=== PATIENT | male | born 1940 | race Caucasian/White ===

== ENCOUNTER 2020-02-28 11:40 | Inpatient (IN) | payer MEDICARE, OTHER ==
[~2020-02-28] VITALS: Ht 175.3 cm; Wt 94.4 kg
--- NOTE | 2020-02-28 11:46 | Emergency Department Note ---
History of Present Illnes History of Present Illness History of Present Illness This is a 79 year old male arrives to the ED with complaints of dizziness weakness generalized malaise first past several months. Patient states he struggling to ambulate. Family is concerned because he is having a more difficult time doing day-to-day tasks. Patient resides with .. Chief Complaint Comment Patient in from home via EMS with reports of dizziness and weakness off and on for the last few months. Patient reports that he had an appointment to see his PCP about this but he was having trouble getting out to his car so his family told him to call for an ambulance. Patient denies any acute complaints at this time but does state that it has been getting harder and harder for him to get around. Patient does report frequent urination but denies pain with urination. Patient is slightly tachycardic at 95 in triage. Onset (how long ago): week(s) Severity: mild Duration (how long): week(s) Timing of current episode: constant Progression: worsening Chronicity: new Context: Reports trauma/injury; Denies recent illness, Denies recent surgery Relieving factors: none Exacerbating factors: none Associated symptoms: Reports syncope, Reports weakness Past Medical/Family History Physician Review I have reviewed the patient's past medical and family history. Any updates have been documented here. Social History Smoking Cessation: Never Smoker Review of Systems Review of Systems Constitutional: Reports as per HPI, Reports weakness EENTM: Reports no symptoms Cardiovascular: Reports no symptoms Respiratory: Reports no symptoms Gastrointestinal: Reports no symptoms Genitourinary: Reports no symptoms Musculoskeletal: Reports no symptoms Integumentary: Reports no symptoms Neurological: Reports no symptoms, Reports as per HPI, Reports tremors, Reports weakness Psychological: Reports no symptoms Endocrine: Reports no symptoms Hematological/Lymphatic: Reports no symptoms Physical Exam Related Data Allergies: Coded Allergies: No Known Allergies (Unverified , 02/28/20) Vital signs reviewed: Yes Physical Exam CONSTITUTIONAL Constitutional: Present well-nourished HENT HENT: Present normocephalic, Present atraumatic, Present oropharynx clear/moist, Present nose normal HENT L/R: Present left ext ear normal, Present right ext ear normal EYES Eyes: Reports PERRL, Reports conjunctivae normal NECK Neck: Present ROM normal PULMONARY Pulmonary: Present effort normal, Present breath sounds normal CARDIOVASCULAR Cardiovascular: Present regular rhythm, Present heart sounds normal, Present capillary refill normal, Present normal rate GASTROINTESTINAL Abdominal: Present soft, Present nontender, Present bowel sounds normal GENITOURINARY Genitourinary: Present exam deferred SKIN Skin: Present warm, Present dry MUSCULOSKELETAL Musculoskeletal: Present ROM normal NEUROLOGICAL Neurological: Present alert, Present abnormal coordination, Present abnormal gait, Present weakness PSYCHOLOGICAL Psychological: Present mood/affect normal, Present judgement normal Results Laboratory Lab results reviewed: Yes Laboratory comments Laboratory Tests Test 02/28/20 15:43 02/28/20 15:05 02/28/20 12:50 White Blood Count 44.69 x10e3/uL (4.8-10.8) 39.78 x10e3/uL (4.8-10.8) Red Blood Count 4.65 x10e6/uL (4.3-5.7) 4.55 x10e6/uL (4.3-5.7) Hemoglobin 14.8 g/dL (14.0-18.0) 14.4 g/dL (14.0-18.0) Hematocrit 44.5 % (38.2-49.6) 43.0 % (38.2-49.6) Mean Corpuscular Volume 95.7 fL (81-99) 94.5 fL (81-99) Mean Corpuscular Hemoglobin 31.8 pg (28-32) 31.6 pg (28-32) Mean Corpuscular Hemoglobin Concent 33.3 g/dL (31-35) 33.5 g/dL (31-35) Red Cell Distribution Width 14.0 % (11.7-14.4) 13.9 % (11.7-14.4) Platelet Count 171 x10e3/uL (140-360) 164 x10e3/uL (140-360) Neutrophils (%) (Auto) 84.5 % (38.7-80.0) 85.6 % (38.7-80.0) Lymphocytes (%) (Auto) 3.3 % (18.0-39.1) 2.4 % (18.0-39.1) Monocytes (%) (Auto) 8.9 % (4.4-11.3) 8.8 % (4.4-11.3) Eosinophils (%) (Auto) 0.0 % (0.0-6.0) 0.1 % (0.0-6.0) Basophils (%) (Auto) 0.5 % (0.0-1.0) 0.4 % (0.0-1.0) Neutrophils # (Auto) 37.8 (2.1-6.9) 34.0 (2.1-6.9) Lymphocytes # (Auto) 1.5 (1.0-3.2) 1.0 (1.0-3.2) Monocytes # (Auto) 4.0 (0.2-0.8) 3.5 (0.2-0.8) Eosinophils # (Auto) 0.0 (0.0-0.4) 0.0 (0.0-0.4) Basophils # (Auto) 0.2 (0.0-0.1) 0.2 (0.0-0.1) Absolute Immature Granulocyte (auto 1.25 x10e3/uL (0-0.1) 1.09 x10e3/uL (0-0.1) Differential Total Cells Counted 100 Neutrophils % (Manual) 89 % (40-74) Lymphocytes % (Manual) 2 % (19-48) Monocytes % (Manual) 9 % (3.4-9.0) Platelet Estimate Adequate Platelet Morphology Comment Few large Polychromasia Few Hypochromasia Slight Stomatocytes Moderate Red Cell Morphology Comment Abnormal Sodium Level 138 mmol/L (136-145) Potassium Level 4.4 mmol/L (3.5-5.1) Chloride Level 103 mmol/L (98-107) Carbon Dioxide Level 22 mmol/L (22-29) Anion Gap 17.4 mmol/L (8-16) Blood Urea Nitrogen 23 mg/dL (7-26) Creatinine 1.36 mg/dL (0.72-1.25) Estimat Glomerular Filtration Rate 50 ML/MIN (60-) BUN/Creatinine Ratio 17 (6-25) Glucose Level 136 mg/dL (74-118) Hemoglobin A1c Percent 6.2 % (4.0-7.0) Calcium Level 9.6 mg/dL (8.4-10.2) Total Bilirubin 0.6 mg/dL (0.2-1.2) Aspartate Amino Transf (AST/SGOT) 32 IU/L (5-34) Alanine Aminotransferase (ALT/SGPT) 20 IU/L (0-55) Alkaline Phosphatase 84 IU/L (40-150) Creatine Kinase 894 IU/L (30-200) Creatine Kinase MB 8.50 ng/mL (0-5.0) Troponin I 0.032 ng/mL (0-0.300) B-Type Natriuretic Peptide 27.8 pg/mL (0-100) Total Protein 7.5 g/dL (6.5-8.1) Albumin 4.0 g/dL (3.5-5.0) Globulin 3.5 g/dL (2.3-3.5) Albumin/Globulin Ratio 1.1 (0.8-2.0) Thyroid Stimulating Hormone (TSH) 1.006 uIU/mL (0.350-4.940) Imaging Imaging results reviewed: Yes Impressions IMPRESSION: 1. Mild to moderate supratentorial ventriculomegaly is slightly out of proportion to sulcal prominence. Correlate for communicating hydrocephalus (i.e. normal pressure hydrocephalus in the appropriate clinical setting). 2. Otherwise, no acute intracranial abnormalities. 3. Mild to moderate supratentorial chronic microvascular ischemic change. 4. Focal areas of encephalomalacia in the left posterior temporal lobe and left temporal pole may be related to remote trauma and/or infarcts. 5. Mild generalized cerebral volume loss. Procedures 12 Lead ECG Interpretation ECG Interpretation : ECG: ECG 1 Prior ECG tracings: reviewed Rhythm: sinus rhythm Rate: tachycardia QRS axis: left Conduction: LAFB ST segments normal: Yes T waves normal: Yes Clinical Impression: abnormal ECG Assessment & Plan Medical Decision Making MDM 79-year-old male arrives to the ED with frequent falls and unsteady gait. Patient had a fall while in the waiting room, denied any head injury. CT brain done on arrival to ensure no acute CVA with her ischemic or hemorrhagic. CT findings were concerning for normal pressure hydrocephalus. Patient admitted to the general medical floor for further workup and management. Neurology consulted. Assessment & Plan Final Impression: (1) Normal pressure hydrocephalus (2) Weakness (3) Ataxia Depart Disposition: ADMITTED ABHISHEK ALMEIDA DO Feb 28, 2020 11:51
--- OUTSIDE RECORDS SUMMARY | 2020-02-28 11:58 | XMS REPORT | Clinical Summary ---
Author Author Jose Martin [employer] Organization [place] [facility] Address Unknown Phone Unavailable Care Team Providers Care Whizzer Hand Name Role Phone Nimesh Montalvo MD PCP [phone] Allergies Not on File Medications Not on file Active Problems Not on file Encounters Care Team Description Date Type Specialty Andres Wong MD Spinal stenosis, lumbar region, without neurogenic claudication (Primary Dx) 04/30/2019 Transcribe Physical Therapy Orders after 02/27/2019 Social History Date Tobacco Use Types Packs/Day Years Used Never Assessed Sex Assigned at Date Recorded Not on file Last Filed Vital Signs Not on file Plan of Treatment Health Maintenance Due Date Last Done Comments SHINGLES VACCINES (#1) 1988 65+ PNEUMOCOCCAL VACCINE 2003 02/07/2016 (2 of 2 - PPSV23) INFLUENZA VACCINE 11/20/2019 01/01/2018, 01/01/2018, 01/01/2018, Additional history exists Results Not on fileafter 02/27/2019 Insurance Type Payer Benefit Subscriber ID Effective Phone Address Plan / Dates Group Medicare MEDICARE MEDICARE [id number] 2003-P JOSE MARTIN, PART A AND resent [place] B Commercial UNITED ROMANIAN 1spire [id number] 2018-P ROMANIAN resent Advance Directives For more information, please contact: [phone] 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
--- OUTSIDE RECORDS SUMMARY | 2020-02-28 11:58 | XMS REPORT | Clinical Summary ---
Author Author KENDRA [place] [employer] Organization [facility] [employer] [place] [facility] Address Unknown Phone Unavailable Care Team Providers Care Tank Carpenter Name Role Phone Sharpless PCP Allergies Not on File Medications Not on file Active Problems Not on file Social History Date Tobacco Use Types Packs/Day Years Used Never Assessed Sex Assigned at Date Recorded Not on file Last Filed Vital Signs Not on file Plan of Treatment Not on file Results Not on fileafter 02/27/2019 Insurance Type Payer Benefit Subscriber ID Effective Phone Address Plan / Dates Group Medicare MEDICARE MEDICARE A [id number] 2003-P B resent PPO BLUE CROSS/BLUE SHIELD BCBS PPO [id number] 2015-P [phone] [address] EPO resent [id number] [place] [address]
--- NOTE | 2020-02-28 12:53 | Diagnostic Imaging Report ---
CT BRAIN WO HISTORY: Weakness and fall COMPARISON: None. Technique: Noncontrast axial scans were obtained from skull base to the vertex. Coronal and sagittal reconstructions obtained from the axial data. One or more of the following dose reduction techniques were used: Automated exposure control, adjustment of the mA and/or kV according to patient size, and/or utilization of iterative reconstruction technique. Beam hardening artifacts obscure some details, especially in the posterior fossa. DISCUSSION: Scalp/Skull: Unremarkable. Brain sulci: Mildly prominent. Ventricles: Mild to moderate supratentorial ventriculomegaly is slightly out of proportion to sulcal prominence. The temporal horns are dilated. The fourth ventricle is unremarkable. Extra-axial spaces: No masses or fluid collections. Carotid and vertebral artery calcifications are present. Parenchyma: There is focal encephalomalacia in the left posterior temporal lobe. Subtle focal encephalomalacia in the left temporal pole is also present. Mild to moderate bilateral deep white matter hypodensity is likely chronic microvascular ischemic change. Otherwise, no masses, hemorrhage, or large vascular territory acute infarct. Dural sinuses: No abnormal densities. Sellar/Suprasellar region: Intact. Skull base: Intact. Incidental findings: Bilateral ocular lens replacement. IMPRESSION: 1. Mild to moderate supratentorial ventriculomegaly is slightly out of proportion to sulcal prominence. Correlate for communicating hydrocephalus (i.e. normal pressure hydrocephalus in the appropriate clinical setting). 2. Otherwise, no acute intracranial abnormalities. 3. Mild to moderate supratentorial chronic microvascular ischemic change. 4. Focal areas of encephalomalacia in the left posterior temporal lobe and left temporal pole may be related to remote trauma and/or infarcts. 5. Mild generalized cerebral volume loss. Signed by: Dr. Chet Urrutia M.D. on 02/28/2020 12:50 PM
[2020-02-28 13:31] LABS: BASOPHILS # (AUTO) 0.2 (0.0-0.1); BASOPHILS % 0.4 % (0.0-1.0); EOSINOPHILS % 0.1 % (0.0-6.0); HEMOGLOBIN 14.4 g/dL (14.0-18.0); LYMPHOCYTES % 2.4 % (18.0-39.1); MEAN CORPUSCULAR HEMOGLOBIN 31.6 pg (28-32); MEAN CORPUSCULAR HGB CONC 33.5 g/dL (31-35); MEAN CORPUSCULAR VOLUME 94.5 fL (81-99); MONOCYTES # (AUTO) 3.5 (0.2-0.8); MONOCYTES % 8.8 % (4.4-11.3); NEUTROPHILS % 85.6 % (38.7-80.0); PLATELET COUNT 164 x10e3/uL (140-360); RED BLOOD COUNT 4.55 x10e6/uL (4.3-5.7); RED CELL DISTRIBUTION WIDTH 13.9 % (11.7-14.4)
--- NOTE | 2020-02-28 13:38 | NUR ---
Patient was noted to be standing outside by main ER entrance door. Per patient report, the patient fell on the way back to the chair in the lobby. Patient was assisted back to his chair with 3 staff member help. ER MD made aware.
[2020-02-28 13:57] LABS: ALBUMIN/GLOBULIN RATIO 1.1 (0.8-2.0); ANION GAP 17.4 mmol/L (8-16); CALCIUM 9.6 mg/dL (8.4-10.2); CREATININE, SERUM 1.36 mg/dL (0.72-1.25); POTASSIUM 4.4 mmol/L (3.5-5.1)
[2020-02-28 14:01] LABS: LYMPHOCYTES % (MANUAL) 2 % (19-48); MONOCYTES % (MANUAL) 9 % (3.4-9.0); NEUTROPHILS % (MANUAL) 89 % (40-74)
[2020-02-28 14:02] LABS: POLYCHROMASIA FEW; STOMATOCYTES MODERATE
[2020-02-28 14:03] LABS: HYPOCHROMASIA SLIGHT; PLATELET ESTIMATE ADEQUATE; PLATELET MORPHOLOGY COMMENT FEW LARGE; RBC MORPHOLOGY COMMENT ABNORMAL
[2020-02-28 14:05] LABS: CREATINE KINASE MB 8.5 ng/mL (0-5.0)
--- OUTSIDE RECORDS SUMMARY | 2020-02-28 14:38 | XMS REPORT | Clinical Summary ---
Author Author KENDRA [employer] [facility] Address Unknown Phone Unavailable Care Team Providers Care Wad Blanking Press Adjuster Name Role Phone Sharpless PCP Allergies Not [...] / Dates Group Medicare MEDICARE MEDICARE A [id number] 2003-P B resent PPO BLUE CROSS/BLUE SHIELD BCBS PPO [id number] 2015-P [phone] [address] EPO resent [id number] [place] [address]
--- OUTSIDE RECORDS SUMMARY | 2020-02-28 14:38 | XMS REPORT | Clinical Summary ---
Author Author Jose Martin [employer] [employer] Organization [place] [facility] Address Unknown Phone Unavailable Care Team Providers Care Inspector And Tester Name Role Phone Nimesh Montalvo MD PCP [phone] Allergies Not on File Medications Not [...] Plan / Dates Group Medicare MEDICARE MEDICARE [id number] 2003-P JOSE MARTIN, PART A AND resent [place] B Commercial UNITED INDONESIAN Movirtu [id number] 2018-P INDONESIAN resent Advance Directives For more information, please contact: [phone] Patient Manager Enterprise Content Management Explanation Type Date Recorded Advance Directives, Living Will and Medical Power of Chartered Wealth Manager
--- OUTSIDE RECORDS SUMMARY | 2020-02-28 14:38 | XMS REPORT | Continuity of Care Document ---
Author Author [facility] t Organization [facility] Address [address] [place] [address] Phone Unavailable Care Team Providers Care Maintenance Truck Driver Name Role Phone Katia MUELLER, Vicente Beavers PCP [phone] Markos ALMEIDA Attphys Unavailable Marvin MUELLER, Luis Campos Attphys Payers Payer Name Policy Type Policy Number Effective Date Expiration Date S marcelle MEDICAREMEDICARE PART A AND [id number] 2003-PresentHOUMarkos [facility] [place] [id number] 2003 00:00:00 Jose Martin Bailey UNITED AMERICANUNITED [id number] 2018-PresentCommercia l [id number] 2018 00:00:00 Jose Martin Bailey Problems This patient has no known problems. Allergies, Adverse Reactions, Alerts This patient has no known allergies or adverse reactions. Social History Social Habit Start Date Stop Date Quantity Comments Source Sex Assigned At [facility] Medications This patient has no known medications. Procedures This patient has no known procedures. Plan of Care Planned Activity Planned Date Details Comments Source Future Scheduled Test 2019-11-20 00:00:00 INFLUENZA VACCINE [code = INFLUENZA VACCINE] [facility] Future Scheduled Test 2003 00:00:00 65+ PNEUMOCOCCAL V ACCINE (2 of 2 - PPSV23) [code = 65+ PNEUMOCOCCAL VACCINE (2 of 2 - PPSV23)] [facility] Future Scheduled Test 1988 00:00:00 SHINGLES VACCINES (#1) [code = SHINGLES VACCINES (#1)] [facility] Results Test Description Test Time Test Comments Results Result Comments Source CT BRAIN WO 2020-02-28 12:40:[address] [facility]ENTER[facility]: JESSICA GAVIRIA : 1940 Sex: M [place] [address] Patient Name: JESSICA GAVIRIA MR #: [id number] : 1940 Age/Sex: 79/M Req #: [id number] Adm Physician: Ordered by: ABHISHEK ALMEIDA DO Report #: [id number] Location: Room/Bed: Procedure: [id number] CT/CT BRAIN WO Exam Date: 02/28/20 Exam Time: 1230 REPORT STATUS: Signed CT BRAIN WO HISTORY: Weakness and fall COMPARISON: None. Technique: Noncontrast axial scans were obtained from skull base to the vertex. Coronal and sagittal reconstructions obtained from the axial data. One or more of the following dose reduction techniques were used: Automated exposure control, adjustment of the mA and/or kV according to patient size, and/or utilization of iterative reconstruction technique. Beam hardening artifacts obscure some details, especially in the posterior fossa. DISCUSSION: Scalp/Skull: Unremarkable. Brain sulci: Mildly prominent. Ventricles: Mild to moderate supratentorial ventriculomegaly is slightly out of proportion to sulcal prominence. The temporal horns are dilated. The fourth ventricle is unremarkable. Extra-axial spaces: No masses or fluid collections. Carotid and vertebral artery calcifications are present. Parenchyma: There is focal encephalomalacia in the left posterior temporal lobe. Subtle focal encephalomalacia in the left temporal pole is also present. Mild to moderate bilateral deep white matter hypodensity is likely chronic microvascular ischemic change. Otherwise, no masses, hemorrhage, or large vascular territory acute infarct. Dural sinuses: No abnormal densities. Sellar/Suprasellar region: Intact. Skull base: Intact. Incidental findings: Bilateral ocular lens replacement. IMPRESSION: 1. Mild to moderate supra tentorial ventriculomegaly is slightly out of proportion to sulcal prominence. Correlate for communicating hydrocephalus (i.e. normal pressure hydrocephalus in the appropriate clinical setting). 2. Otherwise, no acute intracranial abnormalities. 3. Mild to moderate supratentorial chronic microvascular ischemic change. 4. Focal areas of encephalomalacia in the left posterior temporal lobe and left temporal pole may be related to remote trauma and/or infarcts. 5. Mild generalized cerebral volume loss. Signed by: Dr. Chet Urrutia M.D. on 02/28/2020 12:50 PM Dictated By: CHET URRUTIA MD 1250 Transcribed By: ALEJANDRO on 02/28/20 1250 COPY TO: ABHISHEK ALMEIDA DO
--- NOTE | 2020-02-28 14:42 | Diagnostic Imaging Report ---
TECHNIQUE: Frontal view of the chest. INDICATION: ^Y ^fall COMPARISON: None DISCUSSION: Limited evaluation due to portable technique. Lines and hardware: None Heart and mediastinum: Within normal limits. Lungs and pleura: Bilateral interstitial prominence with ill-defined opacities at the lung bases. Central vascular congestion is noted. Negative for focal lobar consolidation, large effusion or pneumothorax. Soft tissues and bones: No acute abnormality. IMPRESSION: 1. Diffuse interstitial prominence with a few ill-defined interstitial opacities at the lung bases could relate to atypical viral infection versus fluid overload/edema. No large effusions or lobar consolidation are noted. Signed by: Last Sanchez MD on 02/28/2020 2:38 PM
--- NOTE | 2020-02-28 14:43 | Diagnostic Imaging Report ---
Pelvis, one view AP INDICATION: ^Y ^fall Comparison: None available. Discussion: Osseous structures are demineralized. No grossly displaced fracture deformity is identified. Sacrum is obscured by overlying bowel gas. Pubic symphysis is not widened. Arteriovascular calcifications are noted. Moderate degenerative changes of the lower lumbar spine and mild degenerative changes of the hip joints are noted. IMPRESSION: Limited single view the pelvis is negative for grossly displaced fracture. Consider follow-up cross-sectional imaging if clinically indicated. Signed by: Last Sanchez MD on 02/28/2020 2:39 PM
[2020-02-28] MEDS ORDERED: ACETAMINOPHEN 325 MG TAB PO PRN (15:00)
[2020-02-28] MEDS ORDERED: ONDANSETRON HCL INJ 2MG/ML 2ML 2 MG/ML VIAL IV PRN (15:00)
[2020-02-28 15:12] LABS: BASOPHILS # (AUTO) 0.2 (0.0-0.1); BASOPHILS % 0.5 % (0.0-1.0); HEMATOCRIT 44.5 % (38.2-49.6); HEMOGLOBIN 14.8 g/dL (14.0-18.0); LYMPHOCYTES # (AUTO) 1.5 (1.0-3.2); LYMPHOCYTES % 3.3 % (18.0-39.1); MEAN CORPUSCULAR HEMOGLOBIN 31.8 pg (28-32); MEAN CORPUSCULAR HGB CONC 33.3 g/dL (31-35); MEAN CORPUSCULAR VOLUME 95.7 fL (81-99); MONOCYTES % 8.9 % (4.4-11.3); NEUTROPHILS # (AUTO) 37.8 (2.1-6.9); NEUTROPHILS % 84.5 % (38.7-80.0); PLATELET COUNT 171 x10e3/uL (140-360); RED BLOOD COUNT 4.65 x10e6/uL (4.3-5.7)
--- NOTE | 2020-02-28 15:43 | Diagnostic Imaging Report ---
EXAM: CT Chest WITHOUT intravenous contrast 02/28/2020 3:15 PM INDICATION: ^pna vs edema ^[id number] ^[id number] COMPARISON: X-ray dated the same day TECHNIQUE: Chest was scanned utilizing a multidetector helical scanner from the lung apex through the level of the adrenal glands without administration of IV contrast. Coronal and sagittal reformations were obtained. Routine protocol was performed. IV CONTRAST: None RADIATION DOSE: Total DLP: 544 mGy*cm. Dose modulation, iterative reconstruction, and/or weight based adjustment of the mA/kV was utilized to reduce the radiation dose to as low as reasonably achievable. COMPLICATIONS: None FINDINGS: LINES/ TUBES: None. LUNGS AND AIRWAYS: Large airways are patent. Moderate emphysematous changes are noted throughout the lungs. Multifocal pleural-based scarring is noted at the lung bases. Mild diffuse mosaic attenuation of the lungs is noted, most predominantly within the perihilar regions and lung bases. No suspicious pulmonary nodule or mass. PLEURA: The pleural spaces are clear. HEART AND MEDIASTINUM: The thyroid gland is normal. No mediastinal, hilar or axillary lymphadenopathy. The heart is normal in size. There is no pericardial effusion. Coronary artery calcifications and stent is identified within the LAD. UPPER ABDOMEN: Nodularity and thickening of the bilateral adrenal glands is noted. Bilateral adrenal adenomas are identified. BONES: No acute osseous abnormality. Severe multilevel degenerative change are noted with bridging anterolateral syndesmophytes. No suspicious destructive lesion is identified. SOFT TISSUES: Unremarkable. IMPRESSION: 1. Diffuse moderate emphysematous changes throughout the lungs with multifocal areas of pleural-based scarring, most prominent at the lung bases. 2. Diffuse interstitial prominence is also noted with slight mosaic attenuation of the lungs which probably relates to chronic emphysematous change and scarring. No focal suspicious infiltrate is identified. Signed by: Last Sanchez MD on 02/28/2020 3:39 PM
--- NOTE | 2020-02-28 16:32 | NUR ---
1st attempt to call report, as per Aidan LARA, 89 has already been assigned to a patient coming from [facility], will call back after clarification
--- NOTE | 2020-02-28 18:04 | Diagnostic Imaging Report ---
History: Altered mental status Comparison studies: Head CT on 02/28/2020 at 1227 hours. Technique: Axial images were obtained from the skull base to the vertex. Coronal and sagittal images reconstructed from the axial data. Dose modulation, iterative reconstruction, and/or weight based adjustment of the mA/kV was utilized to reduce the radiation dose to as low as reasonably achievable. Intravenous contrast: None Findings: See impression Impression: 1. No acute intracranial abnormalities. 2. No changes when compared to the head CT obtained earlier today. 3. Moderately dilated third and lateral ventricles and sylvian fissures. Consider normal pressure hydrocephalus in the appropriate clinical setting. Persistent findings: Mild microvascular changes in the supratentorial white matter. Incidental artificial intraocular lenses Incidental atherosclerotic calcifications in the carotid siphons and vertebral arteries Signed by: Dr. Ti Banks M.D. on 02/28/2020 6:00 PM
--- NOTE | 2020-02-28 18:24 | NUR ---
2nd attempt to call report, no answer
--- NOTE | 2020-02-28 18:25 | NUR ---
3rd attempt to call report, as per day camp unit leader, there are no nurses available to take report, will call back in 5 mins
--- NOTE | 2020-02-28 18:34 | NUR ---
4th attempt to call report, as per manager of community relations, all nurses are dealing with high risk patients in their rooms so no one is available to take report
[2020-02-28] MEDS: FAMOTIDINE 20 MG TAB PO SCH (18:49)
--- NOTE | 2020-02-28 19:00 | NUR ---
pt c fever 102.[address] dent informed. new orders rc'd.
[2020-02-28 19:02] LABS: LYMPHOCYTES % (MANUAL) 2 % (19-48); MONOCYTES % (MANUAL) 11 % (3.4-9.0); NEUTROPHILS % (MANUAL) 87 % (40-74)
[2020-02-28 19:03] LABS: PLATELET ESTIMATE ADEQUATE; PLATELET MORPHOLOGY COMMENT NORMAL; RBC MORPHOLOGY COMMENT NORMAL
--- NOTE | 2020-02-28 19:08 | NUR ---
Dr. Dodson made aware of patient's elevated temperature and WBC's, states that he will enter orders in
--- NOTE | 2020-02-28 19:30 | NUR ---
pt noted c blood clots coming out of penis during physical assessment. states that straight cath had been performed and that no blood clots noted prior to catheterization. pt cleaned c linens changed. er informed. dr dent called and informed dr parker. new orders rc'd.
[2020-02-28] MEDS: CEFTRIAXONE SOD 1 GM/NS 50 ML 50 ML IV SCH (19:41)
--- NOTE | 2020-02-28 20:10 | NUR ---
16 fr wing catheter inserted using sterile technique. minimal amount of bloody urine return noted from catheter. large amount of urine noted draining around catheter. catheter irrigated x3 c large clot removed. encarnacion colored urine noted draining to catheter bag p irrigation. no urine noted draining around catheter. approximately 250cc urine return noted in bag excluding irrigation amount.
[2020-02-28 20:31] LABS: CLARITY,URINE TURBID (CLEAR); COLOR,URINE RED (YELLOW)
[2020-02-28 20:32] LABS: LEUKOCYTE ESTERASE ,URINE TRACE (NEGATIVE); NITRITE,URINE NEGATIVE (NEGATIVE); PROTEIN,URINE DIPSTICK >=300 (NEGATIVE)
[2020-02-28 20:33] LABS: BILIRUBIN,URINE MODERATE (NEGATIVE); KETONES,URINE TRACE (NEGATIVE); URINE UROBILINOGEN 1 mg/dL (0.2 - 1)
[2020-02-28] MEDS: AZITHROMYCIN 500MG/NS 250 ML 250 ML IV SCH (20:33)
[2020-02-28 20:38] LABS: RBC,URINE >50 /HPF (0-5)
[2020-02-28 20:39] LABS: BACTERIA,URINE FEW /HPF
--- NOTE | 2020-02-28 21:08 | NUR ---
REPORT GIVEN TO MARCO HUNTLEY
[2020-02-28 21:38] LABS: CREATINE KINASE MB 8.9 ng/mL (0-5.0)
--- NOTE | 2020-02-28 21:45 | Diagnostic Imaging Report ---
EXAM: CT Abdomen and Pelvis WITHOUT contrast INDICATION: Infection. COMPARISON: None. TECHNIQUE: Abdomen and pelvis were scanned utilizing a multidetector helical scanner from the lung base to the pubic symphysis without administration of IV contrast. Absence of intravenous contrast decreases sensitivity for detection of focal lesions and vascular pathology. Coronal and sagittal reformations were obtained. Routine protocol was performed. IV CONTRAST: None. ORAL CONTRAST: Water RADIATION DOSE: Total DLP 756.50 mGy*cm Estimated effective dose: (DLP x 0.015 x size factor) mSv COMPLICATIONS: None FINDINGS: LINES and TUBES: None. LOWER THORAX: Bibasilar atelectasis. 2.2 cm cyst in the posterior right lower lobe. Trace bilateral pleural effusion. HEPATOBILIARY: No focal hepatic lesions. No biliary ductal dilation. GALLBLADDER: No radio-opaque stones or sludge. No wall thickening. SPLEEN: No splenomegaly. PANCREAS: No focal masses or ductal dilatation. ADRENALS: Nodular thickening of the adrenal gland bilaterally with low-attenuation suggestive of the presence of multiple small adenomata, the largest in the inferior left adrenal gland measuring 1.8 cm on image 29 series 2. KIDNEYS/URETERS: No hydronephrosis. 0.8 cm cyst exophytic of the medial upper pole of the right kidney on image 27. Bilateral perinephric stranding without perinephric fluid collections. 1.1 cm calculus in the lower pole of the right kidney. 1.5 cm centimeter calculus the lower pole of the left kidney. 0.9 cm calculus in the interpolar region of the left kidney. 1.1 cm calculus in the lower pole of the left kidney on coronal image 55. 0.3 cm calculus in the upper pole of the left kidney on coronal image 64. No hydronephrosis. GI TRACT: No abnormal distention, wall thickening, or evidence of bowel obstruction. There are diverticula within the colon without evidence of diverticulitis. Appendix is not identified, however, no evidence of appendicitis. PELVIC ORGANS/BLADDER: The prostate measures 6.6 x 6.0 cm with punctate calcification on image 81 series 2. It measures 7.0 cm in length. It causes mass effect on the urinary bladder posteriorly. 2.5 cm oval calcification in the posterior left hemipelvis abutting the left UVJ. LYMPH NODES: No lymphadenopathy. VESSELS: There is severe atherosclerotic disease in the aorta and major arterial branches. PERITONEUM / RETROPERITONEUM: No free air or fluid. BONES: There are degenerative changes in the lumbar spine. SOFT TISSUES: Unremarkable. IMPRESSION: 1. Bilateral nonobstructing renal calculi. No hydronephrosis. 2. Enlarged prostate. 3. Diverticulosis coli without diverticulitis. 4. Bilateral adrenal adenomata and/or hyperplasia. Signed by: Dr. Carlos Kaur M.D. on 02/28/2020 9:42 PM
[2020-02-28 22:02] VITALS: BP 112/53
[2020-02-28 22:20] VITALS: BP 112/53
[2020-02-28 22:27] VITALS: BP 112/53
--- NOTE | 2020-02-28 23:24 | NUR ---
MD ANGELES PAGED FOR CONSULT MADE AWARE THAT PATIENT IS NEW ADMIT CONSULT FOR AMS, PER MD RODRIGUEZ " I WILL NOT BE ABLE TO SEE HIM UNTIL FRIDAY", MD MORAES MADE AWARE
[2020-02-28] MEDS ORDERED: ATORVASTATIN CA40 MG PO (23:34)
[2020-02-28] MEDS ORDERED: COQ-1030 MG PO (23:35)
[2020-02-29] VITALS (8 sets, daily range): BP systolic 105–122; BP diastolic 43–79
--- NOTE | 2020-02-29 04:43 | NUR ---
CONSULT FOR MD GODFREY CALLED BUT NO ANSWER, VOICEMAIL LEFT FOR RETURN CALL, PT INFORMATION, ROOM NUMBER AND REASON LEFT FOR CONSULT, AWAITING CALLBACK
--- NOTE | 2020-02-29 04:45 | NUR ---
DILL ASSESSMENT COMPLETED, PT URINE NICHOLSON RED, OUTPUT 800CC, CATHETER FLUSHED NO BLOOD CLOTS SEEN AT THIS TIME, PT TOLERATED ACTIVITY WELL, CALL LIGHT WITHIN REACH, PT CONTINUES TO REMAIN DECREASE MEMORY R/T PREVIOUS CONVERSATION AND TIME
[2020-02-29 05:47] LABS: BASOPHILS # (AUTO) 0.2 (0.0-0.1); BASOPHILS % 0.5 % (0.0-1.0); HEMATOCRIT 38.9 % (38.2-49.6); HEMOGLOBIN 12.9 g/dL (14.0-18.0); LYMPHOCYTES # (AUTO) 1.2 (1.0-3.2); LYMPHOCYTES % 3.1 % (18.0-39.1); MEAN CORPUSCULAR HEMOGLOBIN 31.5 pg (28-32); MEAN CORPUSCULAR HGB CONC 33.2 g/dL (31-35); MEAN CORPUSCULAR VOLUME 94.9 fL (81-99); MONOCYTES # (AUTO) 3.9 (0.2-0.8); MONOCYTES % 9.8 % (4.4-11.3); NEUTROPHILS # (AUTO) 33.5 (2.1-6.9); NEUTROPHILS % 83.9 % (38.7-80.0); PLATELET COUNT 156 x10e3/uL (140-360); RED CELL DISTRIBUTION WIDTH 13.9 % (11.7-14.4)
[2020-02-29 05:59] LABS: ALBUMIN 3.2 g/dL (3.5-5.0); ANION GAP 11.8 mmol/L (8-16); CALCIUM 8.9 mg/dL (8.4-10.2); CREATININE, SERUM 1.2 mg/dL (0.72-1.25); POTASSIUM 3.8 mmol/L (3.5-5.1)
[2020-02-29] MEDS: CEFTRIAXONE SOD 1 GM/NS 50 ML 50 ML IV SCH ×2 (08:56→20:28)
[2020-02-29] MEDS: FAMOTIDINE 20 MG TAB PO SCH ×2 (08:56→20:28)
[2020-02-29] MEDS ORDERED: SODIUM CHLORIDE 0.9% 250ML 250 ML ONE ×2 (09:15→20:15)
--- NOTE | 2020-02-29 09:27 | NUR ---
Spoke with Cecile in IR and gave the specific instructions for spinal tap.
[2020-02-29] MEDS ORDERED: LIDOCAINE HCL 1% LOCAL INJ 20 ML VIAL ONE (10:04)
[2020-02-29 10:27] LABS: INR 1.25; PROTHROMBIN TIME 16.3 seconds (11.9-14.5)
--- NOTE | 2020-02-29 11:25 | NUR ---
PAtient is transported for MRI at this time.
[2020-02-29] MEDS ORDERED: GADOBENATE DIMEGLUMINE 1 ML IV ONE (11:34)
--- NOTE | 2020-02-29 11:35 | NUR ---
Okay to remove tele while in MRI.
--- NOTE | 2020-02-29 12:30 | NUR ---
Patient is currently at procedure for spinal tap at this time.
--- NOTE | 2020-02-29 12:45 | Diagnostic Imaging Report ---
MRI BRAIN WOW HISTORY: Altered mental status COMPARISON: Head CT 02/28/2020 TECHNIQUE: Multiple, multisequence MRI examination of the brain was performed without and with intravenous gadolinium based contrast. Motion artifacts obscure some details. DISCUSSION: Scalp/bone marrow: Unremarkable. Brain sulci: Prominent. Ventricles: Unchanged mild to moderate supratentorial ventriculomegaly is slightly out of proportion to sulcal prominence. Extra-axial spaces: No masses or fluid collections. Parenchyma: Scattered T2/FLAIR hyperintense foci throughout the supratentorial white matter and frank are likely chronic microvascular ischemic changes. Old focal cortical insult in the left posterior temporal lobe is again noted. Otherwise, no mass, hemorrhage, or acute vascular insults. Vessels: Normal flow voids in major arteries and veins. Sellar/Suprasellar region: No abnormalities. Craniocervical junction: No abnormalities. Incidental findings: Bilateral ocular lens replacement. IMPRESSION: 1. Unchanged mild to moderate supratentorial ventriculomegaly is slightly out of proportion to sulcal prominence. Correlate for communicating hydrocephalus (i.e. normal pressure hydrocephalus in the appropriate clinical setting). 2. Otherwise, no acute intracranial abnormalities. 3. Mild to moderate supratentorial/pontine chronic microvascular ischemic change. 4. Mild generalized cerebral volume loss. 5. 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 Signed by: Dr. Chet Urrutia M.D. on 02/29/2020 12:42 PM
[2020-02-29] MEDS ORDERED: FENTANYL CITRATE/PF 100MCG/2 ML INJ ONE (12:57)
--- NOTE | 2020-02-29 14:24 | Diagnostic Imaging Report ---
Procedure: Lumbar puncture Modality: Fluoroscopy Total fluoroscopy time: 4.5 Total number of films: 2 Sedation: 50 mcg of fentanyl Anesthesia: 1% lidocaine local Indication: ^[id number] ^1300 ^LUMBAR PUNCTURE Discussion: The patient was sterilely prepped and draped. 1% lidocaine was used for local anesthesia. Patient was unable to hold still throughout the examination despite multiple attempts. Even after sedation with fentanyl patient was unable to lay still. Using fluoroscopic guidance, a 22-gauge 5 inch needle was introduced into the thecal sac at the L3-4 level. Opening pressure of 6 mmHg was noted. Approximately 12 cc of serosanguineous spinal fluid was removed and sent to the laboratory. To remove this amount to approximately 15 to 20 minutes and patient was very uncomfortable and atrophy. Patient was unable to hold still and was trying to get up from the table and the sacrum using pressure was not obtained. There were no procedure related complications. Impression: Limited due to patient inability to cooperate with the exam as described above. Successful fluoroscopy guided lumbar puncture. Signed by: Last Sanchez MD on 02/29/2020 2:20 PM
[2020-02-29 14:47] LABS: APPEARANCE,CSF BLOODY (CLEAR); COLOR,CSF RED (COLORLESS); TUBE NUMBER 2
[2020-02-29 14:48] LABS: TOTAL PROTEIN,CSF 172.2 mg/dL (15-40); WHITE BLOOD CELL,CSF 15 cells/uL (0-5)
--- NOTE | 2020-02-29 15:53 | NUR ---
Patient is back from procedure.
[2020-02-29 16:05] LABS: LYMPHOCYTES,CSF 7 % (40-80); MONOCYTES,CSF 5 %; NEUTROPHILS,CSF 88 % (0-6)
--- NOTE | 2020-02-29 16:32 | Consultation ---
DATE OF CONSULTATION: 02/29/2020 HISTORY: An 79-year-old male with history of forgetfulness, progressive gait problems, ataxia, and urinary incontinence, who apparently had a fever yesterday, high white count, and he became much more confused than usual. The patient was admitted for further evaluation and treatment, started on antibiotics. He had a CT scan of the head as well as MRI brain shows ventriculomegaly as well as white matter changes and small vessel disease as well as old left temporal gliosis. Consultation for AMS. The patient is being treated with antibiotics. The patient improved significantly since yesterday with the antibiotics. No history of tremors are reported. PAST MEDICAL HISTORY: As above. PAST SURGICAL HISTORY: As above. REVIEW OF SYSTEMS: Difficult to obtain, but otherwise unremarkable 14-point of review of system. SOCIAL HISTORY: No tobacco or drug abuse. at bedside. FAMILY HISTORY: Noncontributory. PHYSICAL EXAMINATION: VITAL SIGNS: The patient had fever yesterday. Blood pressure and other vitals are stable. LUNGS: Otherwise, he has a cough, bilateral rales on lung auscultation, as well as crackles. No wheezing. HEART: Normal heart sounds. EXTREMITIES: Pulses present. ABDOMEN: Soft. NEUROLOGIC: The patient is awake, alert, follows commands. Mild difficulty with executive function recall, otherwise language function is normal. No facial asymmetry. Uvula midline. Gag positive. Tongue midline. Shoulder shrug is normal. Sensation normal on face. Bzxusn-xs-ajuk, ghmr-fx-mbux are normal. The patient had difficulty with gait with significant ataxia. No definite lateralized weakness noted. No tremor. No rigidity. Sensory; decreased vibration of bilateral toes. ASSESSMENT: The patient with resolving encephalopathy, may be infectious on top of a neurodegenerative disease and possibly normal-pressure hydrocephalus. Ventriculomegaly. We will need to evaluate for potential normal-pressure hydrocephalus. 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 RECOMMEND: We will also obtain MRI, which was done and results as above without evidence of acute stroke. We also obtain EEG as well as a diagnostic LP. We will be draining fluid and watch his improvement in his gait and other symptoms if any post LP drainage to decide if he might benefit from a shunt. Check ammonia as well TSH and vitamin B12 level as well as RPR. We will check the CSF for any kind of infection chronic or acute. Keep him on neuro checks; physical, occupational, and speech therapy. Yamile Campbell MD AM/MODL /[id number]
[2020-02-29] MEDS ORDERED: POLYETHYLENE GLYCOL 3350 17 GM PACK PO PRN (19:00)
--- NOTE | 2020-02-29 19:30 | NUR ---
SBAR REPORT RECEIVED AT BEDSIDE, PATIENT AWAKE ALERT, SLIGHT CONFUSION NOTED ON TIME, AND PLACE, AT BEDSIDE, NO DISTRESS NOTED, PT ON BED ALARM, CALL LIGHT WITHIN REACH, SCD'S IN PLACE WILL RESUME CARE OF PATIENT
[2020-02-29] MEDS: ATORVASTATIN 40 MG TAB PO SCH (20:28)
[2020-02-29] MEDS: AZITHROMYCIN 500MG/NS 250 ML 250 ML IV SCH (20:38)
--- NOTE | 2020-02-29 20:38 | History and Physical ---
PRIMARY CARE PHYSICIAN: Dr. Nimesh Sheffield in [place]. OUTPATIENT MOLDED CANDLES WICKER: Dr. Nimesh Ibarra. CONSULTING PHYSICIANS: Dr. Donna Donis with Infectious Disease, Dr. Yamile Campbell with Neurology, Dr. Sai Quinones with Urology. CHIEF COMPLAINT: Dizzy, weak, malaise, difficulty walking with frequent falls. HISTORY OF PRESENT ILLNESS: The patient is an 79-year-old male, who per his at the bedside, has been having unsteady gait for the past few months with progressive falls and fell twice yesterday. She states that the morning of 02/27, he was much more confused, having altered mental status from baseline. She denies any steroids or new prescriptions recently. Recently, the patient has had forgetfulness, progressive gait problems, ataxia, urinary incontinence. The patient was seen in the emergency department by Dr. Faust, emergency room physician, and he is currently being evaluated by Neurology. The patient is seen in room 288 with at bedside. He is mildly confused, but in no acute distress. PAST MEDICAL HISTORY: The patient's denies him having any history of cancer or known BPH. He had hypertension at one time, but was taken off his blood pressure medications. He only takes atorvastatin and coenzyme Q10 at home for hyperlipidemia. PAST SURGICAL HISTORY: Cardiac stents. FAMILY HISTORY: Mother had myocardial infarction and CVA. Father due to an accident or he fell back with C-spine fracture while trying to unload a tiller. SOCIAL HISTORY: The patient lives with his . 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 He smokes about a pack a day and has for about 60 years. The patient's states he does not use alcohol or illicit drugs at home. ALLERGIES: NO KNOWN ALLERGIES. REVIEW OF SYSTEMS: Review of systems is collected after speaking with both the patient's as well as the patient. CONSTITUTIONAL: No complaints of chills, fever, or weight loss. EYES: The patient states he has been seeing double for last 2 weeks. EARS: Hard of hearing. No complaints of nose or throat problems. RESPIRATORY: He has a smoker's cough. GENITOURINARY: Per RN, frequent urination and incontinence at home. Crowley catheter was placed in the ER and hematuria noted. PSYCHIATRIC: No psychiatric history. INTEGUMENTARY: No complaints. CARDIOVASCULAR: No complaints of chest pain or palpitations. GASTROINTESTINAL: The patient has been eating okay at home. Last bowel movement was this morning. MUSCULOSKELETAL: No complaints of muscle spasms or pain. NEUROLOGIC: He has been dizzy for the past 6 months. He has been having weakness, falls, ataxia. He denies any headache. He denies any dizziness when lying down. ENDOCRINE: Denies history of diabetes. HEMATOLOGIC/LYMPHATIC: No complaints of bleeding or bruising. PHYSICAL EXAMINATION: VITAL SIGNS: Temperature 98.1, pulse 80, blood pressure 105/54, respirations 17, oxygen saturation 96%. Height 5 feet 9 inches, weight 208 pounds, BMI 30.71. GENERAL: Supine, sleeping, easily arousable, in no acute distress. LUNGS: Diminished in the bases. Oxygen at 3 L/minute via nasal cannula. HEENT: EOMI. Oropharynx clear. NECK: Supple. No lymphadenopathy, thyromegaly, or JVD. CARDIOVASCULAR: Regular rate and rhythm. No murmur. ABDOMEN: Bowel sounds positive. Soft, nontender. Crowley catheter with hematuria noted. Minimal urinary output. EXTREMITIES: No pitting edema. No clubbing, cyanosis, or signs of DVT. NEUROLOGICAL: GCS 13; eye 3, verbal 4, motor 6. LABORATORY DATA: WBCs 39.97 (44.69), hemoglobin 12.9, hematocrit 38.9, platelets 156, neutrophils 83.9%. PT 16.3, INR 1.25. Sodium 137, potassium 3.8, chloride 105, CO2 of 24, BUN 26, creatinine 1.2, estimated GFR 58, glucose 147, lactic acid 1.8 (2.1), calcium 8.9, total bilirubin 0.7, AST 62, ALT 24, alkaline phosphatase 73. Creatine kinase 894, then 1959, then 1964; CK-MB 8.5, then 8.9, then 7.0; troponin I 0.032, then 0.049, then 0.050. Total protein 6.3, albumin 3.2. Urinalysis collected on 02/27, red in color, turbid clarity, pH 5.0, specific gravity greater than or equal to 1.030, protein greater than or equal to 300, glucose negative, ketones trace, large amount of blood, negative for nitrites, trace amount of leukocyte esterase, moderate amount of bilirubin, urobilinogen 1, rbc greater than 50, wbc 6-10, epithelial cells none, urine bacteria few. Cerebrospinal fluid from 02/28, bloody appearance, red color, wbc 15, rbc 7178, neutrophils 88, lymphocytes 7, monocytes 5, glucose 90, total protein 172.2. VDRL pending. SEROLOGY: Coronavirus PCR collected on 02/27 was negative. Influenza types A and B are negative. MICROBIOLOGY: Blood cultures x2 with results pending. Urine culture preliminary shows no growth. Cerebrospinal fluid culture pending. Viral culture and fungal culture from cerebrospinal fluid, both pending. IMAGING/OTHER: A 12-lead EKG had shown sinus rhythm with PACs with a heart rate of 84. EEG has been ordered. Bedside swallow evaluation ordered. CT of the brain without contrast on 02/27, showed ewdj-lb-[id number] supratentorial ventriculomegaly, slightly out of proportion to sulcal prominence, otherwise no acute intracranial abnormalities. Yptl-lq-hkztdikk supratentorial chronic microvascular ischemic change. Mild generalized cerebral volume loss. Further CT of the brain at 1659 that same day, 02/27, showed no acute intracranial abnormalities. No changes when compared with the head CT obtained earlier that same day. Moderately dilated third and lateral ventricles and sylvian fissures. Chest x-ray on 02/27, showed diffuse interstitial prominence with a few ill-defined interstitial opacities at the lung bases, could relate to atypical viral infection versus fluid overload/edema. No large effusions or global consolidations noted. Pelvis x-ray negative for grossly displaced fracture. CT of the chest showed diffuse moderate emphysematous changes throughout the lungs with multifocal areas of pleural-based scarring, most prominent at the lung bases. Diffuse interstitial prominence also noted with slight mosaic attenuation of the lungs, which probably relates to chronic emphysematous change and scarring. No focal infiltrate. CT of the abdomen and pelvis showed bilateral nonobstructive renal calculi. No hydronephrosis, enlarged prostate, diverticulosis coli without diverticulitis, bilateral adrenal adenomata, and other hyperplasia. Lumbar puncture done today limited due to the patient's inability to cooperate with the exam. Opening pressure was 6 mmHg, approximately 12 mL of serosanguineous spinal fluid removed and sent to laboratory. Brain MRI showed unchanged vipz-ls-pdtcoddt supratentorial ventriculomegaly, slightly out of proportion to sulcal prominence. Correlate for communicating hydrocephalus, i.e., normal-pressure hydrocephalus in the appropriate clinical setting. Otherwise, no acute intracranial abnormalities. Genc-lh-ijvikqbs supratentorial/pontine chronic microvascular ischemic change. Mild generalized cerebral volume loss. 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 ASSESSMENT AND PLAN: 1. Severe sepsis with urinary tract infection, present on admission. Trace leukocyte esterase noted in UA. Preliminary urine culture and sensitivity without growth, but holding in the lab. We will follow up on final urine culture and sensitivity results. Continue Rocephin and azithromycin antibiotics. WBC is 39.9 (44.69). Currently afebrile, temperature 102.2 on 02/27. 2. Resolving metabolic encephalopathy, likely due to #1, possibly on top of neurodegenerative disease; probable normal-pressure hydrocephalus. Neurology following. Monitor for improvement in altered mental status. WBC is improving. WBCs in CSF 15, neutrophils 88, and lymphocytes 7, but glucose elevated 90 and total protein elevated at 172.2. 3. Ambulatory dysfunction with weakness and frequent falls (status post fall in the waiting room area). Physical Therapy evaluation and treatment. Also get a bedside swallow evaluation by Speech Therapy. 4. Urinary retention, bilateral nonobstructing renal calculi, and benign prostatic hypertrophy. Urology consulted. Monitor urinary output. His creatine kinase is elevated. We will go ahead and give normal saline with sodium bicarbonate in an effort to alkalinize the urine. 5. Diverticulosis without diverticulitis, currently denies nausea, vomiting, diarrhea, or constipation. Monitor. 6. Active smoker with 60 pack-years, probable chronic obstructive pulmonary disease without exacerbation. Continue supplemental oxygen and monitor oxygen saturation. Continue Rocephin and azithromycin. No infiltrates noted on chest x-ray. Consider Pulmonology consult if the patient worsens from a pulmonary standpoint. 7. Coronary artery disease with cardiac stents in situ. No complaints of chest pain. Monitor. 8. Hyperlipidemia. Home dose of atorvastatin resumed. 9. Prophylaxis, Pepcid and SCDs. Inpatient, billing code [id number], time spent greater than 70 minutes. Dictated by Terrence Jacobson NP Raheem Dodson MD HWP/MODL /[id number]
[2020-03-01] VITALS (9 sets, daily range): BP systolic 108–143; BP diastolic 50–99
--- NOTE | 2020-03-01 | NUR ---
PATIENT GIVEN CARE, MODERATE SOFT BM NOTED, DILL REMAIN IN PLACE PATENT, BROWN COLOR URINE NOTED
--- NOTE | 2020-03-01 02:00 | NUR ---
TELEMETRY REPORTING THAT PATIENT IS AFIB, AFLUTTER, AND CONVERTING BACK TO SR INTERMITTENTLY, ASIYA MILLAN CONTACTED VIA TELEPHONE DIRECTLY, REPORTED TO HER THAT EKG WAS ORDERED STAT, RESULTS GIVEN VERBALLY VIA TELEPHONE, ORDERED CARDIOLOGY CONSULT ROUTINE, PT REMAINS ASYMPTOMATIC, DENIES CHEST PAIN OR DISCOMFORT, MD RAY CONTACTED VIA TELEPHONE, WENT TO VOICEMAIL, MESSAGE LEFT CALL BACK NUMBER LEFT, AWAITING CALL BACK FOR ORDERS
--- NOTE | 2020-03-01 05:32 | NUR ---
HOURLY ROUNDING COMPLETED PATIENT REMAINS STABLE, NO DISTRESS NOTED, DENIES CHEST PAIN, AOX2, WITH SLIGHT CONFUSION NOTED, SPOUSE REMAINS AT BEDSIDE BED ALARM IN PLACE CALL LIGHT WITHIN REACH, NO CALL BACK FROM MD RAY OF YET, WILL REPAGE
[2020-03-01 05:49] LABS: BASOPHILS # (AUTO) 0.1 (0.0-0.1); BASOPHILS % 0.4 % (0.0-1.0); EOSINOPHILS # (AUTO) 0.1 (0.0-0.4); EOSINOPHILS % 0.2 % (0.0-6.0); HEMATOCRIT 37.6 % (38.2-49.6); HEMOGLOBIN 12.6 g/dL (14.0-18.0); LYMPHOCYTES # (AUTO) 1.8 (1.0-3.2); LYMPHOCYTES % 6.1 % (18.0-39.1); MEAN CORPUSCULAR HEMOGLOBIN 32.4 pg (28-32); MEAN CORPUSCULAR HGB CONC 33.5 g/dL (31-35); MEAN CORPUSCULAR VOLUME 96.7 fL (81-99); MONOCYTES % 9.9 % (4.4-11.3); NEUTROPHILS # (AUTO) 24.5 (2.1-6.9); NEUTROPHILS % 81.8 % (38.7-80.0); PLATELET COUNT 141 x10e3/uL (140-360); RED BLOOD COUNT 3.89 x10e6/uL (4.3-5.7)
[2020-03-01 06:20] LABS: ALANINE AMINOTRANSFERASE 26 IU/L (0-55); ALBUMIN 2.8 g/dL (3.5-5.0); ALBUMIN/GLOBULIN RATIO 0.8 (0.8-2.0); ALKALINE PHOSPHATASE 83 IU/L (40-150); ANION GAP 11.8 mmol/L (8-16); BLOOD UREA NITROGEN 25 mg/dL (7-26); BUN/CREATININE RATIO 23 (6-25); CALCIUM 8.9 mg/dL (8.4-10.2); CARBON DIOXIDE 24 mmol/L (22-29); CHLORIDE 106 mmol/L (98-107); CHOL/HDL RATIO 3.1 (3.9-4.7); CHOLESTEROL 101 MD/DL (0-199); CREATININE, SERUM 1.11 mg/dL (0.72-1.25); EST GLOMERULAR FILTRATION RATE > 60 ML/MIN (60-); GLUCOSE 124 mg/dL (74-118); HDL CHOLESTEROL 33 MG/DL (40-60); LDL CHOLESTEROL 55 MG/DL (60-130); MAGNESIUM 1.8 MG/DL (1.3-2.1); PHOSPHORUS 2.6 MG/DL (2.3-4.7); POTASSIUM 3.8 mmol/L (3.5-5.1); SODIUM 138 mmol/L (136-145); TRIGLYCERIDES 64 MG/DL (0-149)
[2020-03-01 06:58] LABS: BAND NEUTROPHILS % (MANUAL) 10 %; LYMPHOCYTES % (MANUAL) 5 % (19-48); MONOCYTES % (MANUAL) 4 % (3.4-9.0); NEUTROPHILS % (MANUAL) 81 % (40-74); TOXIC GRANULATION FEW
[2020-03-01 06:59] LABS: PLATELET ESTIMATE ADEQUATE; PLATELET MORPHOLOGY COMMENT NORMAL; RBC MORPHOLOGY COMMENT NORMAL
--- NOTE | 2020-03-01 07:00 | NUR ---
PATIENT IS AWAKE, ALERT TO SELF AND PLACE, AND IN STABLE CONDITION WITH NO S/S OF RESPIRATORY DISTRESS. PATIENT DENIES PAIN. TELEMETRY APPLIED. O2 APPLIED AT 2.5L NC. DILL INTACT AND DRAINING; URINE IS BROWN IN COLOR. SCD'S APPLIED TO BILATERAL LOWER EXTREMITIES AIR PUMP PLACED TO MATTRESS; BED ALARM APPLIED. PRESENT IN ROOM. CALL LIGHT IS WITHIN REACH, PATIENT INSTRUCTED TO CALL FOR ASSISTANCE NEEDED
[2020-03-01] MEDS: DOCUSATE SODIUM 100 MG CAP PO SCH ×2 (08:37→15:49)
[2020-03-01] MEDS: NICOTINE 21 MG/EA PATCH TOP SCH ×2 (08:37→13:45)
[2020-03-01] MEDS: CEFTRIAXONE SOD 1 GM/NS 50 ML 50 ML IV SCH ×2 (08:41→20:00)
[2020-03-01] MEDS: FAMOTIDINE 20 MG TAB PO SCH ×2 (08:41→15:50)
--- NOTE | 2020-03-01 10:01 | NUR ---
ASSESSMENT: Spiritual Concern Pt's anxious for test results. Pt's at bedside. Pt sleeping. Pt's states "he didn't have a good night last night." Intervention: Provided hospitality and empathic listening. Provided information on how to reach molecular genetic pathologist, if needed. Outcome: Pt's expressed appreciation for visit. No need to follow. CHAD HURTADO [facility] O: [phone]
--- NOTE | 2020-03-01 11:38 | NUR ---
PAST MEDICAL HISTORY: The patient's denies him having any history of cancer or known BPH. He had hypertension at one time, but was taken off his blood pressure medications. He only takes atorvastatin and coenzyme Q10 at home for hyperlipidemia. PAST SURGICAL HISTORY: Cardiac stents. FAMILY HISTORY: Mother had myocardial infarction and CVA. Father due to an accident or he fell back with C-spine fracture while trying to unload a tiller. SOCIAL HISTORY: The patient lives with his . 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 He smokes about a pack a day and has for about 60 years. The patient's states he does not use alcohol or illicit drugs at home. ALLERGIES: NO KNOWN ALLERGIES. REVIEW OF SYSTEMS: Review of systems is collected after speaking with both the patient's as well as the patient.
--- NOTE | 2020-03-01 13:06 | Consultation ---
DATE OF CONSULTATION: HISTORY OF PRESENT ILLNESS: Mr. Canseco is an 79-year-old white male, who has history with difficulty walking, dizziness, not feeling well. The patient was confused. He was brought to the hospital on 02/27. I am asked to see him. The patient's provided all the information. The patient is not a good source of information. PAST MEDICAL HISTORY: All mentioned above. PAST SURGICAL HISTORY: All mentioned above. ALLERGIES: NKA. SOCIAL HISTORY: Denies. REVIEW OF SYSTEMS: Could not be obtained. According to the , the patient is stable otherwise as mentioned above. LABORATORY DATA: Reviewed. His blood cultures negative. His urine culture is negative. When he first came, his white count was 39.7, hemoglobin 14, hematocrit 43, and platelet 164. His COVID-19 is negative. Sodium 137, potassium 3.8, and creatinine 1.20. His CK was 1964. His protein 6.4. He had CAT scan of abdomen and pelvis when he first came, showed bilateral nonobstructing calculi, no hydronephrosis, enlarged prostate, and diverticulosis. PHYSICAL EXAMINATION: GENERAL: He is currently alert, confused. Does not seem to be in acute distress. VITAL SIGNS: Stable. When he first came has 102. HEENT: He is not icteric. NECK: Supple. CHEST: Crackles bilateral. HEART: S1 and S2. ABDOMEN: Soft. Bowel sounds present. EXTREMITIES: No edema. SKIN: No rash. IMPRESSION: 1. Sepsis, on admission, source is unclear. Agree with blood cultures and urine cultures. 2. Altered mental status. Spinal fluid is suggestive of possibility of meningeal encephalitis, however, it was a bloody spinal tap. Spinal fluid cultures are negative so far. An MRI of the brain was done, suggestive of normal pressure hydrocephalus. 3. Fever. Continue Rocephin. We will await cultures. 4. Normal hydrocephalus. We will discuss with Neurosurgery. 5. Underlying dementia. We will follow. MD MARY Miller/WANDY /[id number]
[2020-03-01] MEDS: AMPICILLIN SOD 2 GM/NS 100ML 100 ML IV SCH ×2 (13:08→18:02)
--- NOTE | 2020-03-01 13:55 | NUR ---
WENT TO SPEAK WITH ABOUT REHAB ORDER, SHE STATES SHE DOESNT WANT TO MAKE A CHOICE UNTIL THEY SEE THE NEUROLOGIST, SHE STATES SHE WILL SPEAK WITH HER FAMILY AND LET ME KNOW WHEN SHE IS READY TO MAKE CHOICE.
[2020-03-01] MEDS ORDERED: ACYCLOVIR SODIUM INJ 500 MG in SODIUM CHLORIDE 0.9% 100 ML 100 ML IV SCH (14:00)
--- NOTE | 2020-03-01 16:43 | Consultation ---
DATE OF CONSULTATION: Cardiology Consultation REASON FOR CONSULTATION: Atrial flutter. HISTORY OF PRESENT ILLNESS: This is an 79-year-old man with a history of coronary artery disease, hypertension, and hyperlipidemia, who presented to the emergency department with progressive weakness and recurrent falls. He denies any chest pain, shortness of breath, or palpitations. The patient is fairly confused and cannot provide me the exact details of his past medical history or presenting symptoms. The patient's is at bedside. Evidently, the patient has had an increase in his altered mental status and this has resulted in forgetfulness, unsteady gait, and some incontinence. The patient was found to have hydrocephalus. The patient also was noted to have atrial flutter with controlled ventricular response. PAST MEDICAL HISTORY: As stated above. PAST SURGICAL HISTORY: Percutaneous coronary intervention. PAST FAMILY HISTORY: Noncontributory to current illness. SOCIAL HISTORY: Tobacco use. No alcohol or illicit drug use. MEDICATIONS: See medication reconciliation form. PHYSICAL EXAMINATION: VITAL SIGNS: Temperature is 98.6, heart rate 60, respirations 24, blood pressure is 121/99, ox saturations 92% on 2 L nasal cannula. GENERAL: He is an elderly man, no apparent distress, mildly confused. HEAD: Normocephalic and atraumatic. EYES: The extraocular muscles are intact. Conjunctivae clear. NECK: No JVD. No bruits. CARDIOVASCULAR: He is irregularly irregular. Normal rate. No significant murmurs. LUNGS: Clear to auscultation. ABDOMEN: Soft, nontender, and nondistended. EXTREMITIES: Trace edema. VASCULAR: 2+ pulses. CARDIOVASCULAR MEDICATIONS: Reviewed. LABORATORY DATA: Reviewed. White blood cell count is 29, hemoglobin is 12.6, platelets are 141,000. Creatinine is 1.1. AST is 62. Troponin I 0.05. Creatine kinase is 1964. A 12-lead electrocardiogram showed atrial flutter with controlled ventricular response. Telemetry monitoring showed atrial flutter with controlled ventricular response. IMPRESSION: 1. Normal-pressure hydrocephalus. 2. Recurrent falls. 3. Coronary artery disease. 4. Hypertension. 5. Hyperlipidemia. 6. Elevated liver function tests. 7. Rhabdomyolysis. 8. Atrial flutter. RECOMMENDATIONS: The patient was found to have newly diagnosed atrial flutter. The patient saw his mill laborer, Dr. Ibarra in September of this year and per 's report he had a normal stress test and echocardiogram. The patient has no history of cardiac arrhythmias. No anticoagulation is recommended at this time given recurrent falls and increased bleeding risk. Continue to monitor heart rate. If needed, can start AV judith blocking agents. May consider just aspirin therapy alone. We will check a 2D echocardiogram. All other treatment for his sepsis and normal-pressure hydrocephalus per primary and Neurology team. Charlie Mullins DO BM/MODL /[id number]
[2020-03-01] MEDS: ACYCLOVIR SODIUM INJ 500 MG in SODIUM CHLORIDE 0.9% 100 ML 100 ML IV SCH (16:44)
[2020-03-01] MEDS ORDERED: SODIUM CHLORIDE 0.9% 1000ML 1,000 ML IV ONE (17:00)
[2020-03-01] MEDS ORDERED: SODIUM CHLORIDE 0.9% 250ML 250 ML IV ONE (17:15)
--- NOTE | 2020-03-01 17:48 | Consultation ---
DATE OF CONSULTATION: 03/01/2020 Urology Consultation REASON FOR CONSULTATION: Urinary retention. HISTORY OF PRESENT ILLNESS: Janusz Canseco is an 79-year-old man who two months ago underwent a spinal surgery on his lower back by Dr. Kapadia as an outpatient. The patient has had a month's worth of urinary incontinence as well as fecal incontinence. He was evaluated in a hospital and while being admitted for mental status changes and ataxia was found to have urinary retention for 800 mL. The patient was admitted for a thorough workup. He denies previous hematuria and denies previous urolithiasis. PAST MEDICAL AND SURGICAL HISTORY: 1. Coronary artery disease, status post coronary stent placement. 2. Hypertension. 3. Status post lower back surgery. 4. Hyperlipidemia. SOCIAL HISTORY: The patient smokes one pack per day of cigarettes. 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 He denies ethanol drug use and has supportive at his bedside. FAMILY HISTORY: Noncontributory to the active urological problems. REVIEW OF SYSTEMS: Discussed as above history of present illness and past medical history, otherwise negative for all systems. ALLERGIES: NONE KNOWN. CURRENT MEDICATIONS: Please refer to the MAR. PHYSICAL EXAMINATION: GENERAL: An elderly man lying in bed, in no apparent distress. VITAL SIGNS: He is currently afebrile. Vital signs are currently stable. ABDOMEN: Soft, nondistended, nontender without costovertebral angle tenderness. Kidneys not palpable without hepatosplenomegaly. No obvious evidence of hernia. The patient is obese. GENITOURINARY: Testes descended bilaterally. Testes and epididymides bilaterally palpably normal. The patient has a normal apparently circumcised male phallus with normal meatus without any lesion. There is a Crowley catheter in place draining yellow urine output. For the remaining physical examination systems, please refer to the admission history and physical in the ERT sheet. LABORATORY STUDIES: Urine culture is negative. White blood cell count is elevated at 29,910, it was elevated to above 44,000 earlier this admission. Hemoglobin 12.6, platelets 141,000. The patient's creatinine is normal at 1.11. Urinalysis significant for hematuria and pyuria. COVID test is negative. CT scan of the abdomen and pelvis was done without contrast. It revealed bilateral nephrolithiasis that are rather sizable as well as a very large prostate unfortunately measured in only two dimensions and there is also calcification in the posterior pelvis as well and bilateral adrenal adenomata. ASSESSMENT: 1. Neurogenic bladder. 2. Urinary retention for 800 mL. 3. Mixed-type urinary incontinence. 4. Fecal continence. 5. Obesity. 6. Leukocytosis. 7. Gross hematuria that has improved. 8. Pyuria. 9. Bilateral large nephrolithiasis. 10. BPH. 11. Bilateral adrenal adenomata. 12. Crowley catheter in situ. 13. Anemia. PLANS: 1. Hematological and electrolyte abnormalities per primary team and the other consultants. 2. Leave Crowley catheter in place. 3. Would not the patient benefit from inpatient rehab? 4. The patient will need management of his stones, but first we need to get him his medical condition optimized. Thank you much for involving us in the care of your patient. We will be happy to follow along with you as well as an outpatient. Sai MD Joni OH/MODL /[id number] cc: Dr. Montalvo
--- NOTE | 2020-03-01 18:43 | Progress Note ---
DATE: 03/01/2020 CONSULTING PHYSICIANS: 1. Dr. Donna Donis with Infectious Disease. 2. Dr. Phyllis Borrero with Hematology. 3. Dr. Yamile Campbell with Neurology. 4. Dr. Sai Quinones with Urology. 5. Dr. Roge Resendiz with Cardiology. 6. Dr. Koby Anne with Physiatry. 7. Dr. Gabriel with Neurosurgery. Events overnight. The patient had an episode of atrial flutter last night with controlled heart rate and Cardiology was consulted. SUBJECTIVE: The patient complains of dizzy spells and weakness still. He remains confused. The patient's states that he did not have a good night last night that he was confused and she is concerned about his cognition. He ate no dinner last night, about 10% of breakfast and about 50% of lunch today. The patient denies any pain. He has been seeing double for about the last 2 weeks. Frequency and incontinence of urine at home. Regular BMs. PHYSICAL EXAMINATION: VITAL SIGNS: Temperature 98.6, T-max 99.0, pulse 60, blood pressure 121/99, respirations 24, and oxygen saturation 92%. Intake and output 200 mL in and 400 mL out. GENERAL: Supine, awake, alert, confused with intermittent agitation. LUNGS: Diminished in the bases. Oxygen at 2.5 L/minute via nasal cannula. Not humidified. HEENT: EOMI. Oropharynx clear. NECK: Supple. CARDIOVASCULAR: Irregularly irregular. No murmur. ABDOMEN: Bowel sounds positive. Soft and nontender. Crowley catheter with dark brown urine with recent history of blood clots while in the emergency department. EXTREMITIES: With no pitting edema. No clubbing, cyanosis, or signs of DVT. NEUROLOGICAL: GCS 14, eye 4, verbal 4, motor 6. LABORATORY DATA: WBCs 29.91, hemoglobin 12.6, hematocrit 37.6, platelets 141, neutrophils 81.8%. Sodium 138, potassium 3.8, chloride 106, CO2 24, BUN 25, creatinine 1.11, estimated GFR greater than 60, glucose 124, calcium 8.9, phosphorus 2.6, and magnesium 1.8. Total bilirubin 0.3, AST 62, ALT 26, and alkaline phosphatase 83. Total protein 6.1, albumin 2.8, and globulin 3.3. Triglyceride 64, cholesterol 101, LDL 55, and HDL 33. Ammonia level 57. Vitamin B12 821. Cerebrospinal fluid VDRL pending. CSF WBCs 15, RBCs 7178, neutrophils 88, lymphocytes 7. CSF glucose 90. CSF total protein 172.2. RPR pending. Coronavirus PCR collected 02/27, was negative. Influenza types A and B negative. MICROBIOLOGY: Cerebrospinal fluid, viral culture, fungal culture, and CSF culture all pending. Final Gram stain of CSF with no organisms seen, few WBCs. Final urine culture and sensitivity shows no growth after 36 to 48 hours. Blood cultures x2 show no growth after 24 hours. IMAGING/OTHER: Bedside swallow evaluation today failed. Modified barium swallow pending. EEG completed today pending. 2D echocardiogram ordered today is pending. A 12-lead EKG was done at 3:57 in the morning, which showed atrial flutter with variable AV block with a ventricular rate of 54 beats per minute. ASSESSMENT AND PLAN: 1. Severe sepsis, present on admission, source unclear with fever of 102.2 on admission. WBCs 29.9 (39.97, 44.69) downward trend of WBCs noted, neutrophils 81.8 (83.9), platelets 141 (156). Infectious Disease following; appreciate recommendations. Continue Rocephin, azithromycin, ampicillin, and acyclovir. BUN 25, creatinine 1.11, and estimated GFR greater than 60. We will go ahead and give a bolus of 250 mL normal saline due to dehydration and sepsis, followed by D5 and half-normal saline at 100 mL an hour given that his oral intake is poor. 2. 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 Neurology following. Sepsis is likely not due to infection within the cerebrospinal fluid, as the glucose is elevated at 90. VDRL is still pending. RPR is pending. EEG is pending. Neurosurgery has been consulted and is currently reviewing the patient's diagnostic studies in order to determine if the patient actually needs to be followed by Neurosurgery. Await final results from Neurology workup. 3. Ambulatory dysfunction with weakness and frequent falls, status post fall 02/29/2020. Physical therapy to evaluation and treat. Physical Medicine Rehabilitation/Physiatry has been consulted. The patient remains confused with agitation. Thus at this point, the patient may not be able to participate well with physical therapy as of yet, however, sepsis shows improvement. 4. New onset atrial flutter with controlled ventricular response, atrial flutter with variable AV block with a heart rate of 54 noted on 12-lead EKG. Cardiology was consulted. We will likely hold off on anticoagulation at this point given the patient's frequent falls. Per the patient's , he had a normal stress test and echocardiogram in September when he saw his senior counsel commercial, Dr. Ibarra. Continue to monitor heart rate. 2D echocardiogram pending. 5. Urinary retention with bilateral nonobstructing urinary calculi and benign prostatic hyperplasia. Urology following. Crowley catheter to be left in place at this point. 6. Diverticulosis without diverticulitis. Monitor. 7. Active smoker with 60-pack years, probable chronic obstructive pulmonary disease without exacerbation. Continue Nicoderm patch 21 mg. Continue supplemental oxygen and monitor oxygen saturation. Continue Rocephin and azithromycin. No infiltrates noted on chest x-ray. Consider Pulmonology consult if the patient worsens from a pulmonary standpoint. 8. Coronary artery disease with cardiac stents in situ. Cardiology following. No complaints of chest pain. 9. Hyperlipidemia. Home dose of atorvastatin resumed. 10. Possible dysphagia. The patient failed bedside swallow evaluation and MBS is planned by speech therapy. 11. Prophylaxis. Pepcid, SCDs. 12. Discharge planning: Inpatient Rehab; [facility] versus [facility] depending on 's choice. Inpatient, billing code [id number], time spent greater than 60 minutes; case discussed with the patient's , Dr. Dodson, Dr. Donis, Dr. Campbell, and Dr. Borrero. Dictated by Terrence Jacobson NP Raheem Dodson MD HWP/MODL /[id number]
--- NOTE | 2020-03-01 19:10 | NUR ---
Bedside rounds completed with morning nurse. Pt alert and oriented to name, some agitation during diaper change. Some confusion about place. c/o bilateral legs and shoulder pain 12/29. at bedside. Call light within reach. Bed alarm on.
--- NOTE | 2020-03-01 19:38 | NUR ---
PATIENT IN STABLE CONDITION WITH NO S/S OF RESPIRATORY DISTRESS. DILL INTACT AND DRAINING. SCD'S APPLIED. BED ALARM APPLIED AND THREE RAILS RAISED. CALL LIGHT IS WITHIN REACH, PATIENT INSTRUCTED TO CALL FOR ASSISTANCE NEEDED. BEDSIDE SHIFT REPORT GIVEN TO ONCOMING NURSE.
[2020-03-01] MEDS: LORAZEPAM 1 MG TAB PO PRN (20:00)
[2020-03-01] MEDS: HYDROCODONE/APAP 5MG-325MG TAB PO PRN (20:00)
[2020-03-01] MEDS: ATORVASTATIN 40 MG TAB PO SCH (20:30)
[2020-03-01] MEDS: AZITHROMYCIN 500MG/NS 250 ML 250 ML IV SCH (20:30)
--- NOTE | 2020-03-01 22:33 | Consultation ---
DATE OF CONSULTATION: 03/01/2020 Dr. Quinones asked me to see Mr. Canseco in consultation. REASON FOR CONSULTATION: 1. Sepsis. 2. Urinary incontinence. 3. Gait impairment, possible NPH. 4. Ventriculomegaly of the brain. HISTORY OF PRESENT ILLNESS: The patient is an 79-year-old male with history urinary incontinence, who had back surgery about a month ago, was doing relatively well until he fell. He had become more declined in function. He came to the hospital because of increased falls, more forgetfulness and incontinence. The patient actually had a Crowley placed and it showed 100 mL of blood tinged urine after Crowley catheter placement. He was seen by Dr. Campbell and there was a questionable pressure hydrocephalus, underwent an LP. I am being asked to evaluate for rehab needs. 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 PAST SURGICAL HISTORY: Had back surgery recently with fall a few weeks back and with resulting rib fractures. SOCIAL HISTORY: Lives with his in a one-zuleyma home, ambulatory with a walker at times. She says his cognition is very close to baseline. FAMILY HISTORY: Noncontributory. HABITS: Nonsmoker, nondrinker. 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 REVIEW OF SYSTEMS: GENERAL: Just generalized weakness. CONSTITUTIONAL: No fevers or chills. EYES: Have been seeing double for the past two weeks. EARS: Hard of hearing. RESPIRATORY: Has some coughing. GENITOURINARY: Frequent urination, incontinence at home. PSYCHIATRIC: Denies. INTEGUMENT: No complaints. CARDIOVASCULAR: No complaints. GI: Been eating at home. MUSCULOSKELETAL: No hot, red, swollen nodes, but his back is sore from his previous surgeries. PHYSICAL EXAMINATION: GENERAL: The patient is awake and alert. He had a bedside swallow, will need a modified barium swallow. EYES: Gaze conjugate. He is awake and oriented. He knows it is 2019, and it is February. Does not know the name of the president because we do not know who the president is right now, which was the correct answer. According to , his cognition is the same. HEART: Regular. LUNGS: Fair air entry. ABDOMEN: Nontender, nondistended. Overall general, he is weak. Functional range of motion to the arms and legs. Manual muscle testing 3+ to 4-/5 strength in the arms, 3+/5 strength in legs. He did walk about 10 feet the other day with moderate assist. IMPRESSION: 1. Sepsis. 2. Workup for hydrocephalus in progress. 3. The patient with recent back surgery and recent fall . 4. Urinary retention with some hematuria. 5. Metabolic encephalopathy. PLAN: Therapy will continue to follow once workup is done. I think it would be benefit from inpatient rehab to optimize functional level. We will follow along with you. Thank you once again for allowing me to participate in the care of this very interesting patient. Koby Anne DO RPL/MODL /[id number]
--- NOTE | 2020-03-01 22:59 | Progress Note ---
DATE: SUBJECTIVE: The patient seems more confused and restless today. He had LP yesterday which was really bloody. Otherwise, mildly elevated protein, but the rest of the parameters were unremarkable except for a bloody picture. The patient is on antibiotics, seen by ID, pending evaluation by Hematology and also being seen by Urology. MEDICATIONS: Per list. PHYSICAL EXAMINATION: VITAL SIGNS: Blood pressure 137/88, temperature 98.7. NEUROLOGIC: The patient is awake. He is more confused today, however, he follows simple commands. No lateralized weakness. No tremor. No rigidity. He had difficulty getting out of bed to ambulate. Could not really test his gait. ASSESSMENT: 1. Septic encephalopathy on top of neurodegenerative disease and dementia. 2. Ventriculomegaly and no significant improvement in his neural function after the lumbar puncture and draining CSF fluid, I do not believe he would benefit from a shunt. It probably will not improve his neurological functioning. If our questions remain regarding that, an outpatient cystogram can be scheduled later to further evaluate the possibility of normal-pressure hydrocephalus. 3. Abnormal CSF parameters, most likely related to traumatic gap, the white cells are most likely related to the peripheral blood that was contaminating the CSF. In addition, the protein could be related to the RBC in the CSF. The CSF picture does not support a primary SITE SUPERVISOR infection. ID following and arrange. 4. Cannot rule out transient focal impaired awareness seizures with gliosis in the left temporal area, awaiting the EEG. RECOMMEND: 1. Continue physical and occupational therapy, treatment of the ongoing urosepsis per ID. I do not recommend any neurosurgical intervention. Awaiting EEG to decide if he would benefit from antiepileptic medications. Continue with physical therapy. 2. New onset atrial fibrillation/flutter. Based on his overall condition, the patient will need to be on long-term anticoagulation, probably Eliquis as he is at high risk for embolic events and stroke. We will also keep him on high dose statin to keep LDL less than 70. Control rest of cardiovascular risk factors. The patient is being seen by Cardiology. Yamile Campbell MD AM/WANDY /[id number]
[2020-03-01] MEDS: DEXTROSE 5%/0.45% SOD CHL 1,000 ML IV SCH (23:00)
[2020-03-02] VITALS (8 sets, daily range): BP systolic 117–144; BP diastolic 54–81
[2020-03-02] MEDS: ACYCLOVIR SODIUM INJ 500 MG in SODIUM CHLORIDE 0.9% 100 ML 100 ML IV SCH ×2 (01:00→09:00)
[2020-03-02] MEDS: DEXTROSE 5%/0.45% SOD CHL 1,000 ML IV SCH ×2 (03:00→13:11)
[2020-03-02] MEDS: AMPICILLIN SOD 2 GM/NS 100ML 100 ML IV SCH ×4 (06:00→18:15)
[2020-03-02 06:29] LABS: BASOPHILS # (AUTO) 0.1 (0.0-0.1); BASOPHILS % 0.5 % (0.0-1.0); HEMATOCRIT 38.7 % (38.2-49.6); HEMOGLOBIN 12.7 g/dL (14.0-18.0); LYMPHOCYTES # (AUTO) 1.5 (1.0-3.2); MEAN CORPUSCULAR HEMOGLOBIN 30.8 pg (28-32); MEAN CORPUSCULAR HGB CONC 32.8 g/dL (31-35); MEAN CORPUSCULAR VOLUME 93.9 fL (81-99); MONOCYTES # (AUTO) 2.6 (0.2-0.8); MONOCYTES % 12.7 % (4.4-11.3); NEUTROPHILS # (AUTO) 16.4 (2.1-6.9); NEUTROPHILS % 78.9 % (38.7-80.0); PLATELET COUNT 148 x10e3/uL (140-360); RED BLOOD COUNT 4.12 x10e6/uL (4.3-5.7); RED CELL DISTRIBUTION WIDTH 13.6 % (11.7-14.4)
[2020-03-02] MEDS ORDERED: ZIPRASIDONE 20 MG VIAL IM ONE ×2 (06:30→17:00)
[2020-03-02 07:06] LABS: ANION GAP 12.8 mmol/L (8-16); BLOOD UREA NITROGEN 23 mg/dL (7-26); BUN/CREATININE RATIO 23 (6-25); CALCIUM 8.8 mg/dL (8.4-10.2); CARBON DIOXIDE 24 mmol/L (22-29); CHLORIDE 106 mmol/L (98-107); EST GLOMERULAR FILTRATION RATE > 60 ML/MIN (60-); GLUCOSE 158 mg/dL (74-118); POTASSIUM 3.8 mmol/L (3.5-5.1); SODIUM 139 mmol/L (136-145)
[2020-03-02 07:56] LABS: LYMPHOCYTES % (MANUAL) 7 % (19-48); MONOCYTES % (MANUAL) 10 % (3.4-9.0); NEUTROPHILS % (MANUAL) 82 % (40-74); PLATELET ESTIMATE ADEQUATE; RBC MORPHOLOGY COMMENT NORMAL
[2020-03-02 07:57] LABS: PLATELET MORPHOLOGY COMMENT NORMAL
[2020-03-02] MEDS ORDERED: ONDANSETRON HCL 4 MG ORAL DISINTEGRATING TAB PO PRN (09:15)
--- NOTE | 2020-03-02 10:00 | NUR ---
DR. GODFREY HERE TO PT AND SPOKE WITH .
--- NOTE | 2020-03-02 10:05 | NUR ---
DR. BONNER HERE TO PT AND SPOKE WITH ,
--- NOTE | 2020-03-02 10:16 | Consultation ---
DATE OF CONSULTATION: 03/02/2020 REASON FOR CONSULTATION: Persistent leukocytosis. HISTORY OF PRESENT ILLNESS: An 79-year-old gentleman with past medical history include hypertension and hyperlipidemia, admitted through emergency with dizziness, unsteady gait, and episodes of falls. He was also confused and forgetfulness. There were ataxia plus urinary incontinence. Admission workup showed elevated white blood cells 44, the highest with mostly neutrophils. Hemoglobin, hematocrit, and platelet count were normal. Creatinine was 1.2. AST 62, ALT 24, and alkaline phosphatase was normal. Total protein 6.[address] brain without contrast showed [id number] supratentorial ventriculomegaly and some microvascular ischemic changes. Initial impression was severe sepsis. CT abdomen was enlarged prostrate, diverticulosis coli. CT chest showed pleural based scarring. MRI also confirmed supratentorial ventriculomegaly. The patient was followed with ID. Received Rocephin and azithromycin treatment. Neurology was also involved. The patient also had new onset of atrial flutter, atrial fibrillation. During hospital course, white blood cell count were trending downwards. Clinical condition is also improving. Hemoglobin and hematocrit are stable. PAST MEDICAL HISTORY: Hyperlipidemia and hypertension. ALLERGIES: NKDA. MEDICATION LIST: Reviewed. SOCIAL HISTORY: The patient lives with . He smokes about a pack a day for 60 years. No alcohol or drugs. REVIEW OF SYSTEMS: A 12-point reviewed as per HPI. FAMILY HISTORY: Reviewed. Noncontributory. PHYSICAL EXAMINATION: GENERAL: Alert, awake, and communicative. HEENT: Normocephalic and atraumatic. Sclerae pink. Conjunctivae clear. NECK: Supple. CHEST: Decreased breath sounds on the bases. CARDIOVASCULAR: Regular rate and rhythm. ABDOMEN: Soft. EXTREMITIES: No edema. LABORATORY AND IMAGING DATA: Reviewed. ASSESSMENT AND PLAN: The patient with history of multiple medical conditions, admitted through emergency with dizziness, unsteadiness, multiple falls, confusion, and altered mental status. Workup was consistent with severe sepsis secondary to urinary tract infection, on antibiotic. The patient also had elevated white blood cells at admission. 1. Leukocytosis. a. Peripheral smear shows mostly leukocytosis. b. No abnormal cells seen. c. White cells count are trending downward. d. Clinically doing better. e. Current recommendation, continue antibiotic treatment. f. We will also get flow cytometry peripheral blood to rule out any myeloid or lymphoid disorder. g. Continue remaining cannula and we will follow. 2. Atrial fibrillation. a. New onset. b. Recommendation; anticoagulation treatment, Eliquis 5 mg twice a day. c. We will communicate with primary as outpatient. 3. Encephalopathy. a. Improved. b. Likely related with sepsis. c. Continue remaining cannula and we will follow. MD OTONIEL Avila/MODL /[id number]
[2020-03-02] MEDS: DOCUSATE SODIUM 100 MG CAP PO SCH ×2 (10:30→17:45)
[2020-03-02] MEDS: CEFTRIAXONE SOD 1 GM/NS 50 ML 50 ML IV SCH ×2 (10:30→19:30)
[2020-03-02] MEDS: FAMOTIDINE 20 MG TAB PO SCH ×2 (10:30→17:46)
[2020-03-02] MEDS: NICOTINE 21 MG/EA PATCH TOP SCH (10:30)
--- NOTE | 2020-03-02 11:17 | Progress Note ---
DATE: SUBJECTIVE: The patient is awake and alert. He was standing up with physical therapy, very ataxic, using a cane, still with urinary incontinence, and he felt very dizzy when he stood up. His blood pressure dropped at least to 30 mmHg. The rest of the vital signs per the chart. MEDICATIONS: Per the list. The patient did not have the MRI yet because he was restless. PHYSICAL EXAMINATION: NEURO: He is alert. Follows commands. Pleasant, normal speech, still with cognitive impairment. No facial asymmetry. Abnormal gait, wide-based, and very unsteady. Deep tendon reflexes are 1. Plantars are equivocal. No sensory level detected. He is diffusely weak around 4+/5. ASSESSMENT AND PLAN: Resolving encephalopathy related to urosepsis on top of dementia, neurodegenerative disease. Ventriculomegaly, no improvement post draining CSF, not likely to benefit from a shunt. His exaggerated weakness and ataxia with urine incontinence, this might raise a possibility of a cord lesion, especially with his recent surgery. We will obtain MRI cervical spine and MRI of lumbosacral spine, which are pending at this time. So far, no evidence of AIRCRAFT CLEANER infection. I do not believe he needs acyclovir. Treatment of the ongoing urosepsis, no other infection per the primary service. Atrial fibrillation, he will need long-term anticoagulation pf no other contraindication. Also, will need to be on high dose statins if no other contraindication. The patient is very orthostatic, which could be related to dehydration, but most likely it is part of the neurodegenerative disease. If no improvement with hydration, he might need vasopressors such as midodrine and others. At this point, we will await the MRI cervical and lumbar region and make further recommendations. Continue physical and occupational therapy. In his current condition, probably patient will not be able to tolerate the rehabilitation. He might need an interim place of residence until he is able to tolerate rehab. Yamile Campbell MD AM/MODL /[id number]
--- NOTE | 2020-03-02 12:00 | NUR ---
DR. JANE HERE TO PT AND SPOKE WITH ,
--- NOTE | 2020-03-02 12:12 | NUR ---
PT OFF UNIT FOR MBS.
--- NOTE | 2020-03-02 14:23 | NUR ---
pt returned to unit. alert resp even and unlabored. at bedside.
--- NOTE | 2020-03-02 14:49 | Diagnostic Imaging Report ---
Modified barium swallow exam with speech pathology service CLINICAL HISTORY: Ataxia. Normal pressure hydrocephalus. Weakness. Fluoro Time: 0.2 min. Dose: 77 mGy IMPRESSION: Please see the speech pathology service report for details. Barium contrast of multiple consistencies is given to the patient to swallow. Fluoroscopic observation is performed during swallowing. Penetration and aspiration is noted with thin liquids. Vallecular residue is noted with all consistencies. Please see speech pathology report for further details. Signed by: Last Sanchez MD on 03/02/2020 2:46 PM
--- NOTE | 2020-03-02 15:44 | NUR ---
maintenance shop manager provided pastoral support, Hope building and prayer . pt appreciate maintenance shop manager visit
--- NOTE | 2020-03-02 16:00 | NUR ---
pt off unit for MRI.
--- NOTE | 2020-03-02 17:08 | Progress Note ---
DATE: SUBJECTIVE: Mr. Canseco seems to be a little more alert today. His is at the bedside. There are no new complaints. REVIEW OF SYSTEMS: Nothing new, but more alert. Discussed with Neurosurgery. The finding of the MRI is not suggestive of hydrocephalus. Also, the fact that he did not respond to LP. Also the LP was suggestive with a bloody tap. The patient is currently more alert. His white count came down to 20.7. His hemoglobin 12.7. Sodium 139, potassium 3.8, and creatinine of 1. PHYSICAL EXAMINATION: GENERAL: He is currently alert. VITAL SIGNS: Stable currently afebrile. HEENT: Not icteric. NECK: Supple. CHEST: Clear. HEART: S1 and S2. ABDOMEN: Soft. Bowel sounds present. EXTREMITIES: No edema. SKIN: No rash. IMPRESSION: 1. Sepsis on admission, improving source is unclear, it could be aspiration pneumonia versus urinary tract infection. The patient did have urinary retention on admission, it was drained. 2. Nephrolithiasis. The patient has been seen by Urology. All the cultures are negative. I am going to stop the acyclovir. We are going to stop the ampicillin. Continue with Rocephin. Recheck CBC. Continue supportive care. 3. Dementia. 4. Altered mental status. Neurology is following. 5. Leukocytosis. 6. Sepsis from urinary tract infection seems to be better. We will follow. MD MARY Miller/MODL /[id number]
--- NOTE | 2020-03-02 17:12 | Consultation ---
DATE OF CONSULTATION: 03/02/2020 HISTORY OF PRESENT ILLNESS: The patient is an 79-year-old man who presents with acute confusion and disorientation and generalized weakness. CT and MRI of the brain revealed no abnormalities except for minimal ventriculomegaly. I was consulted to rule out normal-pressure hydrocephalus as the cause of his current condition. The patient's tells me that for the past few months, the patient has been feeling generally weak. He had back surgery by Dr. David Unger several months ago and his back pain improved, but his general weakness did not improve. He was however, in his normal mental state until the day before this admission when he became acutely confused and his was convinced that he had had a stroke. He was admitted through the emergency room. Since then, he has been treated for sepsis with IV antibiotics. He had a lumbar puncture, which was a bloody tap and revealed no evidence of FILLING OPERATOR infection. Importantly, he exhibited no improvement in his generalized weakness or mental status after CSF was withdrawn during lumbar puncture. PHYSICAL EXAMINATION: On examination, the patient is an ill-appearing, old man lying in bed. He is sleeping, but is easily arousable to voice. He follows simple commands, but has poor attention. He is disoriented x3. His speech is mumbling, but understandable and appropriate. Pupils are 3 mm, equal and reactive to light. Extraocular movements are intact with preserved upgaze. Facial, motor and sensory functions are symmetric and the tongue protrudes to midline. Motor strength is symmetric in the arms. He is able to lift his legs against gravity. According to the nurses, he can walk with physical therapy for about 5-10 steps. IMPRESSION: His clinical condition is not consistent with normal-pressure hydrocephalus. Specifically, the sudden deterioration in his mental status just prior to this admission and the lack of response to withdrawal of CSF during lumbar puncture are not consistent with NPH. It appears that he has more of a general weakness syndrome rather than a gait apraxia. Of note, the patient's peripheral white blood cell count is markedly elevated in the range of 40,000. It has come down to 20,000 in the past few days. Consider the diagnosis of leukemia, if the white blood cell count continues to remain elevated. Buck Gabriel MD PP/MODL /[id number]
--- NOTE | 2020-03-02 18:00 | NUR ---
pt return to unit, resp even and unlabored.
[2020-03-02] MEDS: APIXABAN 5 MG TABLET PO SCH (18:15)
--- NOTE | 2020-03-02 19:05 | NUR ---
Completed bedside rounds with morning nurse. Pt alert and oriented to name, sitting up in bed HOB 75 degrees. feeding dinner at bedside, educated on nectar thick liquids and meals with same consistency. Denies pain at this time. Call light within reach. Bed alarm on.
--- NOTE | 2020-03-02 19:10 | NUR ---
walking rounds complete, report given to oncoming nurse
[2020-03-02] MEDS: LORAZEPAM 1 MG TAB PO PRN (20:00)
[2020-03-02] MEDS: ATORVASTATIN 40 MG TAB PO SCH (20:00)
[2020-03-02] MEDS: AZITHROMYCIN 500MG/NS 250 ML 250 ML IV SCH (20:00)
[2020-03-02] MEDS: HYDROCODONE/APAP 5MG-325MG TAB PO PRN (20:00)
[2020-03-03] VITALS (8 sets, daily range): BP systolic 124–158; BP diastolic 69–90
[2020-03-03 05:43] LABS: BASOPHILS # (AUTO) 0.1 (0.0-0.1); BASOPHILS % 0.8 % (0.0-1.0); EOSINOPHILS # (AUTO) 0.2 (0.0-0.4); EOSINOPHILS % 1.2 % (0.0-6.0); HEMATOCRIT 41.5 % (38.2-49.6); HEMOGLOBIN 13.8 g/dL (14.0-18.0); LYMPHOCYTES # (AUTO) 1.7 (1.0-3.2); LYMPHOCYTES % 10.2 % (18.0-39.1); MEAN CORPUSCULAR HEMOGLOBIN 31.6 pg (28-32); MEAN CORPUSCULAR HGB CONC 33.3 g/dL (31-35); MONOCYTES # (AUTO) 2.5 (0.2-0.8); MONOCYTES % 14.7 % (4.4-11.3); NEUTROPHILS % 72.1 % (38.7-80.0); PLATELET COUNT 156 x10e3/uL (140-360); RED BLOOD COUNT 4.37 x10e6/uL (4.3-5.7); RED CELL DISTRIBUTION WIDTH 13.7 % (11.7-14.4)
[2020-03-03] MEDS: AMPICILLIN SOD 2 GM/NS 100ML 100 ML IV SCH ×3 (06:00→11:23)
[2020-03-03 06:12] LABS: ANION GAP 12.6 mmol/L (8-16); BLOOD UREA NITROGEN 17 mg/dL (7-26); BUN/CREATININE RATIO 20 (6-25); CARBON DIOXIDE 26 mmol/L (22-29); CHLORIDE 104 mmol/L (98-107); CREATININE, SERUM 0.86 mg/dL (0.72-1.25); EST GLOMERULAR FILTRATION RATE > 60 ML/MIN (60-); GLUCOSE 131 mg/dL (74-118); POTASSIUM 3.6 mmol/L (3.5-5.1); SODIUM 139 mmol/L (136-145)
--- NOTE | 2020-03-03 06:40 | NUR ---
RECEIVED BEDSIDE SHIFT REPORT FROM OFF GOING NURSE. PATIENT IS RESTING IN BED. NO ACUTE DISTRESS NOTED. CALL LIGHT WITHIN REACH. BED IN THE LOWEST POSITION. BED ALARM ON.
[2020-03-03] MEDS: DEXTROSE 5%/0.45% SOD CHL 1,000 ML IV SCH ×3 (07:00→19:35)
--- NOTE | 2020-03-03 07:05 | NUR ---
PT RESTING IN BED. PT IN STABLE CONDITION. TELE APPLIED. BEDSIDE SHIFT REPORT GIVEN TO ONCOMING NURSE.
--- NOTE | 2020-03-03 07:24 | Diagnostic Imaging Report ---
Examination: MRI SPINE CERVICAL WO CONTRAST History: Ataxia. Altered mental status. Normal pressure hydrocephalus. Comparison studies: None. Technique: Sagittal T1, T2 and IR, axial T2 and axial gradient echo intravenous contrast: None Findings: Alignment: Normal lordosis. No scoliosis. Cervicomedullary junction: No abnormalities. Patent foramen magnum. Soft tissues: No T2 hyperintense inflammatory changes. Spinal cord: Normal in size and signal from the foramen magnum through T1. Vertebrae: No fractures, infection or neoplasm. Degenerative changes: C1-C2: No abnormalities. C2-C3: Central and right central disc protrusion contacts the right ventral cord. No foraminal or canal stenosis. C3-C4: Diffuse disc osteophyte complex and bilateral uncovertebral and facet arthropathy result in moderate right and mild left neural foraminal narrowing and mild canal stenosis. C4-C5: Diffuse disc osteophyte complex and bilateral uncovertebral and facet arthropathy result in moderate right and severe left neural foraminal narrowing and mild canal stenosis. C5-C6: Diffuse disc osteophyte complex and bilateral uncovertebral and facet arthropathy result in moderate bilateral neural foraminal narrowing and moderate canal stenosis. C6-C7: Diffuse disc osteophyte complex and bilateral uncovertebral arthropathy result in moderate right and mild left neural foraminal narrowing and moderate canal stenosis. C7-T1: No abnormalities. IMPRESSION: 1. Degenerative changes of C2-C3 through C6-C7 with moderate canal stenosis at C5-C6 and C6-C7 and mild canal stenosis at C3-C4 and C4-C5. 2. Severe left foraminal narrowing at C4-C5, moderate right foraminal narrowing at C3-C4, C4-C5 and C6-C7. Moderate bilaterally at C5-C6. Signed by: Dr. Evangelina Menjivar M.D. on 03/03/2020 7:21 AM
[2020-03-03] MEDS: CEFTRIAXONE SOD 1 GM/NS 50 ML 50 ML IV SCH (08:19)
[2020-03-03] MEDS: FAMOTIDINE 20 MG TAB PO SCH ×3 (08:19→16:36)
[2020-03-03] MEDS: APIXABAN 5 MG TABLET PO SCH ×2 (08:20→16:36)
[2020-03-03] MEDS: DOCUSATE SODIUM 100 MG CAP PO SCH ×2 (08:20→16:36)
[2020-03-03] MEDS: NICOTINE 21 MG/EA PATCH TOP SCH (08:20)
[2020-03-03] MEDS: LORAZEPAM 1 MG TAB PO PRN (09:33)
--- NOTE | 2020-03-03 10:58 | Diagnostic Imaging Report ---
Examination: MRI SPINE LUMBAR WO CONTRAST History: Ataxia Comparison studies: None Technique: Sagittal, coronal and axial T2 , sagittal T1 and STIR; axial spin density oblique. Findings: Number of lumbar vertebral bodies: Five. Alignment: Normal lordosis. No scoliosis. Soft tissues: A right interpolar 1.3 cm T2 hyperintense rounded lesion that represents a cyst. Posterior paraspinal soft tissues and muscles: No abnormality. Lower thoracic cord: Normal in signal and morphology. The tip of the conus is at bottom of T12. Cauda equina: No masses. No arachnoiditis. Vertebrae: No fractures, infection or neoplasm. Degenerative changes: L1-L2: Asymmetric to the left disc bulge results in mild right and moderate left neural foraminal narrowing. No canal stenosis. L2-L3: Diffuse disc bulge, ligamentum flavum thickening and bilateral facet arthropathy result in mild bilateral neural foraminal narrowing and moderate canal stenosis. L3-L4: Prior decompressive laminectomy. Diffuse disc bulge and bilateral facet arthropathy result in moderate right and mild left neural foraminal narrowing. Posterior and medial to the right facet joint there is a 1.1 cm T2 hyperintense lesion that represents a synovial cyst. L4-L5: Asymmetric to the right disc bulge and bilateral facet arthropathy result in mild right neural foraminal narrowing and mild canal stenosis. No left foraminal narrowing. L5-S1: Diffuse disc bulge and bilateral facet arthropathy. No foraminal or canal stenosis. IMPRESSION: Degenerative changes from L1-L2 through L5-S1 with moderate left foraminal narrowing L1-L2, moderate right foraminal narrowing L3-L4 and moderate canal stenosis at L2-L3. Prior decompressive laminectomy at L3-L4. Signed by: Dr. Evangelina Menjivar M.D. on 03/03/2020 10:55 AM
--- NOTE | 2020-03-03 13:31 | NUR ---
PATIENT'S IS CONCERNED ABOUT PATIENT'S CONFUSION/HALLUCINATIONS, WANTS TO TALK TO DR. GODFREY. PAGED DR. GODFREY, NO ANSWER, LVM.
[2020-03-03] MEDS ORDERED: HALOPERIDOL LACTATE 5 MG/ML VIAL IM PRN (14:30)
[2020-03-03] MEDS: QUETIAPINE FUMARATE 25 MG TAB PO PRN (14:45)
--- NOTE | 2020-03-03 14:47 | Progress Note ---
DATE: SUBJECTIVE: The patient is doing okay. All the rest event noted. Current white cell count 16,000. Tolerating anticoagulation treatment very well. PHYSICAL EXAMINATION: GENERAL: Alert and awake. HEENT: Normocephalic and atraumatic. Sclerae pink. Conjunctivae clear. NECK: Supple. CHEST: Decreased breath sounds in the bases. ABDOMEN: Soft. EXTREMITIES: Positive edema. LABORATORY AND IMAGING DATA: Reviewed. ASSESSMENT AND PLAN: The patient with history of multiple medical condition, currently following a neurologist, ID, admitted with confusion, encephalopathy, leukocytosis, and also had atrial fibrillation. White cell counts are trending downward. Flow cytometry is pending. The patient already started on anticoagulation for atrial fibrillation. Clinical condition is stable. Tolerating treatment very well. RECOMMENDATION: Continue current care. We will follow. MD OTONIEL Avila/WANDY /[id number]
--- NOTE | 2020-03-03 15:38 | Progress Note ---
DATE: 03/03/2020 SUBJECTIVE: Mr. Canseco is seen today. He is actually regressing trying to get out of bed. His is at the bedside. Feels that he is not doing as well as he should be doing. His sodium is 139, potassium of 3.6, BUN of 17, creatinine 0.964. White cell count has gone down to 16.7 from yesterday, which was 20.7, hemoglobin 13.8, hematocrit 41.5, and platelets of . OBJECTIVE: HEART: Regular. LUNGS: Diminished breath sounds. ABDOMEN: Nondistended. Crowley is in place. Urine has been dark. He is receiving IV ABX. He is confused, reaching up, seeing things. I spoke with the patient and his daughter over the phone. She was on speaker phone. I explained that I am the rehab physician, I am not able to really make the diagnosis at this point, but this is a presumptive diagnosis of sepsis and he is being treated currently. However, he has had decline in function as well as cognition. I reviewed the MRI of his brain from 02/28, which him about already. He had scans of his cervical and lumbar spine, which showed degenerative changes C2-C3 through C6-C7 with moderate canal stenosis and mild canal stenosis at C3-C4, C4-C5, and severe left foraminal stenosis at C4-5 and moderate, right foraminal narrowing at C3-4, C4-5 and C6-7. Also in the lumbar spine had degenerative changes from L1-L2 through L5-S1 with moderate left foraminal narrowing at L1-2 and right foraminal narrowing at L3-4 and moderate canal stenosis at L2-3. I explained that in layman's terms to the . Also, I spoke with you, Dr. Dodson's PA about concerns. At this point, they are just worried about him not getting better. His labs, however, improving. I explained that from a rehab standpoint, he is nowhere near ready to go to rehab and therefore let them continue working on his medical status and even when possible to rehab when appropriate if that becomes a possibility. Discussed with patient and daughter via the phone with the results. Koby Anne DO RPL/WANDY /[id number]
--- NOTE | 2020-03-03 17:13 | NUR ---
ST Note: Attempted to see pt for initiation session of dysphagia therapy. Discussed case with MARCO Harrell, who reported pt is very agitated, hallucinating, trying to get out of bed, attempted to kick staff. Pt not appropriate for dysphagia therapy at this time. Will return later.
--- NOTE | 2020-03-03 18:54 | Progress Note ---
DATE: Cardiology Progress Note SUBJECTIVE: The patient is very confused and hallucinating, not oriented. No cardiac events per nursing staff. OBJECTIVE: VITAL SIGNS: Temperature is 98.2, heart rate 61, respirations are 22, blood pressure is 124/89, and oxygen saturation 91% on 2 L nasal cannula. GENERAL: He is an elderly man, nonpurposeful movements, lying in bed, moaning, talking to animals and people, who are not there. CARDIOVASCULAR: Irregular. Normal rate. LUNGS: Diminished breath sounds at the bases. ABDOMEN: Soft and nondistended. Normoactive bowel sounds. EXTREMITIES: Trace edema. CARDIOVASCULAR MEDICATIONS: Reviewed. Include Eliquis and atorvastatin. LABORATORY DATA: Reviewed. White blood cell count 16.7 and hemoglobin is 13.8. Creatinine is 0.86. Telemetry monitoring showed atrial flutter with a controlled ventricular response. IMPRESSION: 1. New onset atrial flutter. 2. Possible normal pressure hydrocephalus. 3. Recurrent falls. 4. Encephalopathy. 5. Altered mental status. 6. Coronary artery disease. 7. Hypertension. 8. Rhabdomyolysis. RECOMMENDATIONS: The patient was found to have newly diagnosed atrial flutter. Per his , he had a [facility] and his stress test and echocardiogram were within normal limits. He has no history of prior cardiac arrhythmias. Again, I would not recommend full anticoagulation going forward, as the patient is quite demented with encephalopathy and ataxic gait with recurrent falls. Continue to monitor on telemetry. If needed, can start low-dose beta blockers. We will continue to follow along with you. Charlie Mullins DO BM/MODL /[id number]
--- NOTE | 2020-03-03 19:24 | NUR ---
BEDSIDE SHIFT REPORT GIVEN TO ONCOMING NURSE, PATIENT IS RESTING IN BED. NO ACUTE DISTRESS NOTED AT THIS TIME. CALL LIGHT WITHIN REACH. BED IN THE LOWEST POSITION. BED ALARM ON.
--- NOTE | 2020-03-03 19:31 | NUR ---
SBAR REPORT RECEIVED FROM DAYSAZFT RN, PATIENT SEEN SLEEPING NO DISTRESS NOTED REMAIN ON OXYGEN AT THIS TIME, AT BEDSIDE, CONCERNED THAT PATIENT IS SLEEPING CT Brain stat order per MD Unger, patient seen sleeping, snoring, no distress noted, laser/electro optics technician called to verify order, advised him "best time to do it, he is sleeping", will be transported via bed on oxygen support
--- NOTE | 2020-03-03 19:39 | NUR ---
PATIENT LEFT THE FLOOR VIA BED FOR CT BRAIN, TAKEN VIA TWO PULP MIXER, OXYGEN SUPPORT IN PLACE, PATIENT REMAINS DROWSY
--- NOTE | 2020-03-03 20:11 | Diagnostic Imaging Report ---
EXAMINATION: Head CT without contrast. HISTORY:Altered mental status. COMPARISON:CT brain from 02/28/2020 and MRI brain from 02/29/2020. TECHNIQUE: Multidetector axial images were obtained from the foramen magnum to the vertex without contrast. The images were reconstructed using brain and bone algorithms. Thin section brain images were reformatted into coronal and sagittal planes. Dose modulation, iterative reconstruction, and/or weight based adjustment of the mA/kV was utilized to reduce the radiation dose to as low as reasonably achievable. Intravenous contrast: None IMAGE QUALITY: Acceptable. FINDINGS: Skull/scalp: No lytic or blastic. lesions. No surgical changes. Parenchyma: Nonspecific bilateral frontoparietal patchy white matter hypodensity are likely related to small vessel ischemic changes. Unchanged cortical-based hypodensity in the posterior aspect of left temporal lobe represents chronic encephalomalacia from prior vascular insult. No acute hemorrhage, mass or acute major vascular territorial infarct. Arteries: No density suggestive of thrombosis. Atherosclerotic calcification in bilateral carotid siphon and V4 segment of the vertebral arteries. Dural sinuses: No abnormal density suggestive of thrombosis. Ventricles: Unchanged moderate ventricular dilatation particularly involving the third and lateral ventricles disproportionate to the amount of cerebral volume loss. Extra-axial spaces: No abnormal density. Brain volume: Normal for age. Craniocervical junction: No mass, Chiari malformation, or basilar invagination. Sella: No mass. Paranasal/mastoid sinuses: Imaged portions unremarkable. IMPRESSION: No acute intracranial abnormality. No significant change since CT brain from 02/28/2020. Chronic findings: 1. Mild to moderate supratentorial white matter microvascular ischemic changes. 2. Moderate ventriculomegaly disproportionate to the amount of cerebral volume loss may represent normal pressure hydrocephalus in appropriate clinical setting. 3. 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 Signed by: Dr. Sylwia Sifuentes M.D. on 03/03/2020 8:07 PM
[2020-03-03] MEDS: ATORVASTATIN 40 MG TAB PO SCH (21:00)
[2020-03-03] MEDS: OLANZAPINE 5 MG TAB PO SCH (21:00)
[2020-03-03] MEDS: MEROPENEM 1GM 100 ML IV SCH (21:11)
--- NOTE | 2020-03-03 21:20 | Progress Note ---
DATE: SUBJECTIVE: The patient seemed more confused, at times hallucinating today. His was very concerned. He is still weak all over, being treated with antibiotics. Eliquis was initiated. MEDICATIONS: Per medication list. PHYSICAL EXAMINATION: More confused today. Awake, generalized weakness. ASSESSMENT: 1. Encephalopathy on top of chronic neurodegenerative disease and dementia with hallucinations. 2. Atrial fibrillation, on anticoagulation. 3. Urosepsis, being treated. 4. Cervical and lumbosacral degenerative disease. 5. Left temporal gliosis, EEG is still pending. RECOMMEND: We will add rivastigmine patch and we will wean off Seroquel as well as avoid Haldol and start him on Zyprexa. We will also start Depakote if no contraindication. Awaiting the EEG. We will also obtain a followup CT of the brain considering his increased confusion today. Yamile Campbell MD AM/WANDY /[id number]
[2020-03-04] VITALS (9 sets, daily range): BP systolic 149–171; BP diastolic 6–88
[2020-03-04] MEDS: HYDRALAZINE HCL 20 MG/ML VIAL IV PRN ×2 (00:33→16:31)
--- NOTE | 2020-03-04 02:20 | Progress Note ---
DATE: CONSULTING PHYSICIANS: 1. Dr. Donna Donis with Infectious Disease. 2. Dr. Phyllis Borrero with Hematology. 3. Dr. Yamile Campbell with Neurology. 4. Dr. Sai Quinones with Urology. 5. Dr. Roge Resendiz with Cardiology. 6. Dr. Koby Anne with Physiatry. 7. Dr. Gabriel with Neurosurgery. 8. Dr. Eldridge with Psychiatry. SUBJECTIVE: The patient is currently supine, asleep. Earlier today, he was very agitated, hallucinating, attempting to get out of bed without assistance, attempting to kick staff members, talking to animals and people who were not there. A consult for Psychiatry was entered. OBJECTIVE: VITAL SIGNS: Temperature 98.2, pulse 61, blood pressure 124/89, respirations 22, oxygen saturation 91%. GENERAL: Supine, asleep, in no acute distress. LUNGS: Diminished in the bases. Oxygen at 4 L/minute via nasal cannula. HEENT: Oropharynx clear. NECK: Supple. CARDIOVASCULAR: Irregularly irregular. D5 and half-normal saline at 100 mL an hour into a peripheral IV. ABDOMEN: Bowel sounds positive. Soft, nontender. Crowley catheter with falguni urine. EXTREMITIES: No pitting edema. No clubbing, cyanosis, or signs of DVT. NEUROLOGICAL: Extremely confused, agitated, and hallucinating earlier, but currently asleep. LABORATORY DATA: WBCs 16.7, hemoglobin 13.8, hematocrit 41.5, and platelets 156. Sodium 139, potassium 3.6, chloride 104, CO2 of 26, BUN 17, creatinine 0.86, estimated GFR greater than 60, glucose 131, calcium 9.0. On 03/02, immunology labs for leukemia/lymphoma workup are pending. VDRL from CSF collected on 02/28 is nonreactive. SEROLOGY: RPR collected on 03/01 is nonreactive. MICROBIOLOGY: On 02/27, blood culture and sensitivity, preliminary report shows gram-negative mark. IMAGING/OTHER: CT of the brain without contrast was completed today as a repeat given the patient's worsening confusion, no acute intracranial abnormality is noted and there is no significant change since CT done on 02/27. ASSESSMENT AND PLAN: 1. Severe sepsis, present on admission, source unclear. WBCs 16.7 (20.72). Infectious Disease following, appreciate recommendations. Continue Rocephin, azithromycin, ampicillin. Merrem 1 g IV every 8 hours has been added. Continue IV fluids. 2. Metabolic encephalopathy on top of neurodegenerative disease and dementia with hallucinations. Neurology following. The patient has ventriculomegaly. No improvement post draining of CSF. Thus, not likely to benefit from a shunt. CSF VDRL negative. RPR negative. Results of the EEG are pending. Rivastigmine patch was added. Plans to wean off Seroquel, avoid Haldol, Zyprexa was started as well as Depakote. Repeat CT of the head was without change. Await final results from Neurology workup. Psychiatry was consulted today. 3. Ambulatory dysfunction with weakness and frequent falls, status post fall on 02/29/2020. Physical Therapy following. The patient remains confused with agitation and is unable to participate with physical therapy at this point. 4. New onset atrial flutter with controlled ventricular response. Cardiology following. Echocardiogram done on 03/01, showed estimated ejection fraction of 25% to 30%. As the patient is essentially bedbound currently, we will continue anticoagulation with Eliquis 5 mg b.i.d. 5. Urinary retention with bilateral nonobstructive urinary calculi and benign prostatic hyperplasia. Urology following. Maintain Crowley catheter in place. 6. Active smoker with 60 pack-years, probable chronic obstructive pulmonary disease without exacerbation. Continue Nicoderm patch and supplemental oxygen. Monitor oxygen saturation. No infiltrates on chest x-ray. 7. Hyperlipidemia. Continue home dose of atorvastatin. 8. Severe oral and moderate to severe pharyngeal dysphagia. Currently, the patient too confused to work with speech therapy. 9. Prophylaxis, Pepcid, SCDs. Inpatient, billing code [id number], time spent greater than 35 minutes. Dictated by Terrence Jacobson NP MD CHANDLER CastañedaP/MODL /[id number]
[2020-03-04] MEDS: DEXTROSE 5%/0.45% SOD CHL 1,000 ML IV SCH (05:18)
[2020-03-04] MEDS: MEROPENEM 1GM 100 ML IV SCH ×2 (05:19→13:34)
--- NOTE | 2020-03-04 06:28 | NUR ---
RECEIVED BEDSIDE SHIFT REPORT FROM OFF GOING NURSE. PATIENT IS RESTING IN BED, NO ACUTE DISTRESS NOTED AT THIS TIME. CALL LIGHT WITHIN REACH. BED IN THE LOWEST POSITION. BED ALARM ON.
[2020-03-04 06:36] LABS: BASOPHILS # (AUTO) 0.1 (0.0-0.1); BASOPHILS % 0.6 % (0.0-1.0); EOSINOPHILS # (AUTO) 0.1 (0.0-0.4); EOSINOPHILS % 0.6 % (0.0-6.0); HEMATOCRIT 40.8 % (38.2-49.6); HEMOGLOBIN 13.5 g/dL (14.0-18.0); LYMPHOCYTES # (AUTO) 1.4 (1.0-3.2); MEAN CORPUSCULAR HEMOGLOBIN 31.5 pg (28-32); MEAN CORPUSCULAR HGB CONC 33.1 g/dL (31-35); MEAN CORPUSCULAR VOLUME 95.3 fL (81-99); MONOCYTES # (AUTO) 2.4 (0.2-0.8); MONOCYTES % 13.3 % (4.4-11.3); NEUTROPHILS # (AUTO) 13.6 (2.1-6.9); NEUTROPHILS % 76.5 % (38.7-80.0); PLATELET COUNT 188 x10e3/uL (140-360); RED BLOOD COUNT 4.28 x10e6/uL (4.3-5.7); RED CELL DISTRIBUTION WIDTH 13.5 % (11.7-14.4)
[2020-03-04 06:56] LABS: ANION GAP 12.7 mmol/L (8-16); BLOOD UREA NITROGEN 11 mg/dL (7-26); BUN/CREATININE RATIO 14 (6-25); CARBON DIOXIDE 24 mmol/L (22-29); CHLORIDE 103 mmol/L (98-107); EST GLOMERULAR FILTRATION RATE > 60 ML/MIN (60-); GLUCOSE 138 mg/dL (74-118); POTASSIUM 3.7 mmol/L (3.5-5.1); SODIUM 136 mmol/L (136-145)
--- NOTE | 2020-03-04 07:36 | Progress Note ---
DATE: 03/03/2020 SUBJECTIVE: Mr. Canseco is doing better. There are no new complaints. PHYSICAL EXAMINATION: GENERAL: He is currently alert. VITAL SIGNS: Stable, currently afebrile. HEENT: He is not icteric. NECK: Supple. CHEST: Clear. HEART: S1 and S2. ABDOMEN: Soft. Bowel sounds present. EXTREMITIES: No edema. SKIN: No rash. IMPRESSION: Sepsis on admission due to gram-negative rods. Discontinue ampicillin. Discontinue Rocephin. We will put him on meropenem. Recheck CBC. Recheck Chem panel. Source of the sepsis is urinary tract infection. We will follow. MD MARY Miller/WANDY /[id number]
[2020-03-04] MEDS: DEPAKOTE DELAYED-RELEASE TAB 500 MG PO SCH ×2 (07:46→15:00)
[2020-03-04] MEDS: QUETIAPINE FUMARATE 25 MG TAB PO PRN (07:51)
[2020-03-04] MEDS: FAMOTIDINE 20 MG TAB PO SCH (07:51)
[2020-03-04] MEDS: APIXABAN 5 MG TABLET PO SCH (07:51)
[2020-03-04] MEDS: DOCUSATE SODIUM 100 MG CAP PO SCH ×2 (07:51→16:17)
[2020-03-04] MEDS: NICOTINE 21 MG/EA PATCH TOP SCH (07:51)
--- NOTE | 2020-03-04 07:58 | NUR ---
PATIENT VERY AGITATED. ATTEMPTED TO GET OUT OF BED X3. TRYING TO PULL IV AND DILL OUT. MEDICATED WITH PRN AGITATION MEDICATION.
[2020-03-04] MEDS: LEVALBUTEROL HCL SOLN NEBU 1.25 MG/3 ML NEB INH SCH ×3 (09:00→20:20)
[2020-03-04] MEDS: IPRATROPIUM BROMIDE 0.02% 2.5 ML NEB NEB SCH ×3 (09:00→20:20)
--- NOTE | 2020-03-04 09:32 | Diagnostic Imaging Report ---
EXAMINATION: CHEST SINGLE (PORTABLE) INDICATION: R/O ASPIRATION COMPARISON: None FINDINGS: TUBES and LINES: None. LUNGS: Normal lung volumes. There is lower lobe predominant diffuse interstitial and airspace opacities affecting both lungs. PLEURA: Trace bilateral pleural effusion. No pneumothorax. HEART AND MEDIASTINUM: The cardiomediastinal silhouette is mildly enlarged. There are atherosclerotic calcifications within the aorta. BONES AND SOFT TISSUES: Degenerative changes in the spine and shoulders. Soft tissues are unremarkable. UPPER ABDOMEN: No free air under the diaphragm. Small amount of partially imaged contrast in the left upper quadrant likely within the stomach. IMPRESSION: 1. Lower lobe predominant diffuse interstitial and airspace opacities affecting both lungs. Differential diagnosis includes aspiration versus multifocal pneumonia with probable superimposed pulmonary edema. 2. Trace bilateral pleural effusion. Signed by: Tessie Dawson MD on 03/04/2020 9:29 AM
[2020-03-04] MEDS: RIVASTIGMINE PATCH 4.6MG/24 HOURS PATCH TD SCH (09:37)
--- NOTE | 2020-03-04 11:07 | Progress Note ---
DATE: 03/04/2020 CONSULTING PHYSICIANS: 1. Dr. Donna Donis with Infectious Disease. 2. Dr. Phyllis Borrero with Hematology. 3. Dr. Yamile Campbell with Neurology. 4. Dr. Sai Quinones with Urology. 5. Dr. Roge Resendiz with Cardiology. 6. Dr. Koby Anne with Physiatry. 7. Dr. Gabriel with Neurosurgery. 8. Dr. Eldridge with Psychiatry. 9. Dr. Adria Busby with Pulmonology/Critical Care Medicine. SUBJECTIVE: The patient is currently asleep, supine in bed, currently no acute distress. Yesterday, he was very agitated, hallucinating, talking to animals and people, who were not there, attempting to get out of bed without assistance, and attempting to kick staff members. Multiple medication changes yesterday with Zyprexa and Depakote added. The patient is more lethargic this morning. Unable to adequately obtain ROS due to confusion. The patient's is at bedside concerned. Case discussed extensively with her for 30 minutes. 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 Ibarra, as he requested an update. His phone #[phone]. We will confer with Dr. Dodson regarding this before calling. PHYSICAL EXAMINATION: VITAL SIGNS: Temperature 98.8, pulse 70, blood pressure 149/72, respirations 20, and oxygen saturation 98%. Intake and output 1660 mL and 1500 mL out. GENERAL: Supine, asleep, in no acute distress. LUNGS: Diminished. Oxygen at 3 L/minute via nasal cannula. HEENT: Oropharynx clear. NECK: Supple. CARDIOVASCULAR: Irregularly irregular. No IV fluids infusing peripheral IV. ABDOMEN: Bowel sounds positive. Soft and nontender. Crowley catheter with falguni urine. EXTREMITIES: With no pitting edema. No clubbing, cyanosis, or signs of DVT. He has bilateral SCDs in place. NEUROLOGICAL: Pupils are equal, round, and reactive to light, 2+, asleep, lethargic, arousable. LABORATORY DATA: WBCs 17.81, hemoglobin 13.5, hematocrit 40.8, platelets 188, neutrophils 76.5%. Sodium 136, potassium 3.7, chloride 103, CO2 24, anion gap 12.7, BUN 11, creatinine 0.8, estimated GFR greater than 60, glucose 138, and calcium 9.0. MICROBIOLOGY: Blood culture collected on 02/27, positive for multidrug-resistant Pseudomonas aeruginosa. IMAGING/OTHER: Stat chest x-ray this morning showed lower lobe predominant diffuse interstitial and airspace opacities affecting both lungs. Differential diagnosis includes aspiration versus multifocal pneumonia with probable superimposed pulmonary edema. Trace bilateral pleural effusion. On 03/01, echocardiogram showed ejection fraction 25% to 30%. On 03/02, modified barium swallow showed penetration and aspiration noted with thin liquids. Vallecular residue noted with all consistencies. Effie aspiration of one of three trials of thin liquids and trace silent aspiration with liquid portion of mixed texture. The patient with severe oral and hcollrya-ss-koauhz pharyngeal dysphagia with inconsistent swallowing function, fatigue, effie and silent aspiration during evaluation. According to speech therapist, poor prognosis. Neuromuscular electrical stimulation recommended to treat dysphagia and repeat modified barium swallow in 4 to 6 weeks. Standard dysphagia therapy and standard swallow precautions. 03/03, CT of the brain without contrast completed as a repeat given the patient's worsening confusion and no acute intracranial abnormality was noted, and there was no significant change since the CT done on 02/27. ASSESSMENT AND PLAN: 1. Severe sepsis, present on admission, definite source unclear. WBCs 17.8 (16.7, 20.72). Infectious Disease following, appreciate recommendations. Rocephin, azithromycin, and ampicillin have been discontinued and the patient is currently on Merrem 1 g IV every 8 hours. Renal function is within normal limits and IV fluids have been discontinued. 2. Probable aspiration pneumonia. Pulmonology has been consulted. Stat chest x-ray today suggests aspiration versus multifocal pneumonia. Xopenex and Atrovent every 6 hours have been ordered. Speech therapy to continue follow. The patient had a CT of the chest on 02/27, which showed diffuse moderate emphysematous changes throughout the lungs with multifocal areas of pleural-based scarring, most prominent at the lung bases. Diffuse interstitial prominence also noted with slight mosaic attenuation of the lungs, which probably relates to chronic emphysematous change and scarring. No focal suspicious filtrate is identified. We will leave it up to postmaster whether CT of the chest needs to be repeated. 3. Metabolic encephalopathy on top of neurodegenerative disease and dementia with hallucinations. Neurology following. It is possible that the patient has an underlying Lewy body dementia. He does have ventriculomegaly. No improvement was noted post drainage of cerebrospinal fluid. Thus, the patient is now likely to benefit from a shunt. No surgery planned by Neurosurgery at this point. CSF VDRL was negative. RPR was negative. Results of the EEG are pending. Rivastigmine patch was added. There are plans to wean off Seroquel and avoid Haldol. Zyprexa and Depakote have been started. The patient is lethargic today. Medications may need adjustment. Repeat CT of the head was without change. Await final results from Neurology workup. Psychiatry consulted, 03/03. 4. Severe oral and qmqeocoe-xu-ejpjrx pharyngeal dysphagia. Speech therapy following. Neuromuscular electrical stimulation ordered, as it has been recommended. Please note, modified barium swallow results above. 5. Ambulatory dysfunction with weakness and frequent falls, status post fall on 02/29/2020. Physical therapy following. The patient remains confused and unable to participate with physical therapy at this point. 6. New onset atrial fibrillation with controlled ventricular response. Cardiology following. Estimated ejection fraction 25% to 30%, as the patient is essentially bedbound. Currently, we will continue anticoagulation with Eliquis 5 mg b.i.d. 7. Urinary retention with bilateral nonobstructive urinary calculi and benign prostatic hyperplasia. Urology following. Maintain Crowley catheter in place. 8. Active smoker with 60-pack years, probable chronic obstructive pulmonary disease without exacerbation. Continue Nicoderm patch and supplemental oxygen. Monitor oxygen saturation. Pulmonology/Critical Care Medicine consulted today. 9. Hyperlipidemia. Continue home dose of atorvastatin. 10. Prophylaxis. SCDs; we will switch Pepcid to Protonix given that the patient is on Eliquis. Inpatient, billing code [id number], time spent greater than 45 minutes. Dictated by Terrence Jacobson NP MD CHANDLER CastañedaP/HAILEYL /[id number]
--- NOTE | 2020-03-04 11:19 | NUR ---
Nutrition Intervention Note RD Recommendation(s) for Physician: GI consult for a PEG evaluation. Place a nasoenteric tube to the small bowel. Jevity 1.2 at 85ml/hr via NDT Plan of Care: RD following, monitoring for tolerance and adequacy Nutrition reason for involvement: LOS RD Assessment Initial encounter with patient. Pt was not able to provide a nutrition Hx due to altered mental status. Pt's was present. 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 has experience with a PEG tube with another family member. Pt is currently NPO due to aspiration/silent aspiration. MD to discuss treatment options with today. 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 NKFA. Principal Problems/Diagnoses:Ataxia, normal pressure hydrocephalus, weakness PMH: Hyperlipidemia, tobacco, diverticulosis, CAD GI:+ bowel sounds, soft non tender, normal BMs Skin: intact Skin Labs: 03/04/2020)Glucose 138 Meds: (03/04/2020) atorvastatin Ht:69 in. Wt:208 lbs BMI:30.7kg/M2 IBW:160lbs Malnutrition Evaluation (03/04/20) The patient does not meet criteria for a specified degree of malnutrition at this time. Will re-evaluate at follow-up as appropriate. Nutrition Prescription (Diet Order): NPO Estimated Nutritional Needs: 2363calories/day ( 25kcal/kg/BW) 95g protein/day (1 g pro/kg/BW) Diet Adequacy: NPO Diet Education Needs Assessment: Diet education not indicated. Nutrition Care Level: High Nutrition Diagnosis:Swallowing difficulty related to impaired movement of food/liquids from within the oral cavity to the stomach as evidenced by aspiration Goal: Patient will meet 75-100% of estimated needs by follow up Progress: (Not Progressing) Interventions: Commercial food, Composition, Rate, Route, IVF, Prescription medications, Recommended Modifications, Collaboration with other providers. Monitoring/Evaluation: Total energy intake, Total protein intake, Formula/Solution, Prescription medication, Weight change. Signed: Peter Thompson RD, LD, [facility]
[2020-03-04 12:00] LABS: ABG HCO3 27 mmol/L (22-26); ABG PCO2 45 mmHg (35-45); ABG PH 7.39 (7.35-7.45); ABG PO2 71 mmHg (80-105); ABG TCO2 29
--- NOTE | 2020-03-04 13:30 | NUR ---
pt drowsy due to be medicated by nurse due to agitation and tried crawling oob, deferring any therapy at this time Addendum: 03/04/20 at 1333 by Shin Nye PTA Amended: Links added.
--- NOTE | 2020-03-04 14:35 | NUR ---
PATIENT AGITATED. TRYING TO GET OFF BED. LEGS IN BETWEEN SIDE RAILS. STAFF ATTEMPTED TO HELP HE STARTED YELLING. MEDICATED PATIENT WITH PRN HALDOL ORDERED.
--- NOTE | 2020-03-04 16:52 | Consultation ---
DATE OF CONSULTATION: Pulmonary Critical Care Consultation CHIEF COMPLAINT: Confusion and abnormal x-ray HISTORY OF PRESENT ILLNESS: The patient is an 79-year-old man. He has some decline in his mental status for several months prior to admission. He had increasing falls. He also had some increasing incontinence. He came in and was initially evaluated for normal-pressure hydrocephalus. This was negative. He also had a Crowley placed for urinary retention as well as Urology consult. He was started on antibiotics for possible aspiration pneumonia. PAST SURGICAL HISTORY: Status post cardiac stents. PAST MEDICAL HISTORY: 1. Hypertension. 2. Benign prostatic hypertrophy. 3. Myocardial infarction. 4. Metabolic encephalopathy. FAMILY HISTORY: There is a history of coronary artery disease. SOCIAL HISTORY: The patient was a prior smoker. He is not a drinker. ALLERGIES: NO KNOWN DRUG ALLERGIES. REVIEW OF SYSTEMS: The patient is afebrile. PHYSICAL EXAMINATION: VITAL SIGNS: The blood pressure is 149/78, pulse is 74. HEENT: Shows no facial swelling or erythema. LYMPHATIC: Shows no submandibular, cervical, or supraclavicular adenopathy. CARDIAC: Reveals regular rate and rhythm with normal S1 and S2. LUNGS: Auscultation of lungs reveals crackles and rhonchi bilaterally. There is no wheezing. ABDOMEN: Soft, nontender. There is no rebound or guarding. EXTREMITIES: Shows no leg edema or calf tenderness. LABORATORY DATA: White blood cell count is 17.8, hemoglobin is 13.5, and platelet count is 188. The BUN to creatinine ratio is 11 to 0.8. The other electrolytes are within normal limits. RADIOGRAPHIC DATA: Chest CT from the shows diffuse emphysema with some areas of pleural thickening. Chest x-ray from today shows lower lobe predominant diffuse interstitial airspace opacities passively suggesting multifocal pneumonia. IMPRESSION: 1. Aspiration pneumonia. 2. Metabolic encephalopathy. 3. Oropharyngeal dysphagia. 4. Atrial fibrillation. 5. Chronic systolic congestive heart failure. PLAN: 1. Continue current antibiotics. 2. Continue Lovenox. 3. Continue current cardiac regimen. 4. Seroquel as needed for confusion as well as p.r.n. Ativan. Adria Busby MD [facility]/WANDY /[id number]
[2020-03-04] MEDS: CEFEPIME 2 GM/NS 0.9% 100 ML 100 ML IV SCH (17:00)
--- NOTE | 2020-03-04 18:23 | Progress Note ---
DATE: SUBJECTIVE: Mr. Canseco remains confused. at the bedside. He has no fever. The patient who grew Pseudomonas aeruginosa, it was sensitive to ceftazidime, cefepime, and imipenem as well as ofloxacin. The patient is currently lying in bed comfortably, confused. His white count came down to 17.8. PHYSICAL EXAMINATION: GENERAL: He is currently alert, confused. VITAL SIGNS: Stable, afebrile. HEENT: He is not icteric. NECK: Supple. CHEST: Clear. HEART: S1, S2. ABDOMEN: Soft. Bowel sounds present. EXTREMITIES: No edema. SKIN: No rash. IMPRESSION: Sepsis on admission. We will discontinue meropenem. We will put him on cefepime 1 g p.o. eight. The patient will need two weeks of antibiotic. We will follow. MD MARY Miller/WANDY /[id number]
--- NOTE | 2020-03-04 18:58 | Progress Note ---
DATE: 03/04/2020 Cardiology Progress Note SUBJECTIVE: The patient is lethargic. No history could be obtained. was present at bedside. OBJECTIVE: VITAL SIGNS: Temperature 97 degrees, pulse 79, respiratory rate 20, blood pressure 149/78, and oxygen saturation 94% on 3 L nasal cannula. GENERAL: Elderly man, confused, and lethargic. LUNGS: Decreased breath sounds at the bases. CARDIOVASCULAR: Normal rate, irregular rhythm. Normal S1, S2. ABDOMEN: Soft, nontender. EXTREMITIES: No edema. CARDIAC MEDICATIONS: 1. Atorvastatin 40 mg p.o. at bedtime. 2. Eliquis 5 mg p.o. b.i.d. LABORATORY DATA: WBC 17.81, hemoglobin 13.5, hematocrit 40.8, and platelets 188. Sodium 136, potassium 3.7, chloride 103, CO2 of 24, BUN 11, creatinine 0.8. TELEMETRY: Personally reviewed and interpreted revealing atrial flutter with variable AV block. IMPRESSION: 1. Newly diagnosed atrial flutter with variable AV block. 2. Aspiration pneumonia. 3. Altered mental status. 4. Euvxo-mf-dpzfatv systolic heart failure. 5. Coronary artery disease. 6. Hypertension. 7. Rhabdomyolysis. RECOMMENDATIONS: We will review echocardiogram. The patient's family reports echo at Dr. Ibarra's office was unremarkable. We will repeat BNP. Monitor the patient closely on telemetry. Per nursing records, the patient was apparently agitated and trying to get out of bed. We will therefore, discontinue anticoagulation as he is high risk of fall and subsequent bleeding. The heart rate is currently well controlled. We will monitor to assess if beta-blockade will need to be added. Continue supportive care. Antibiotics per Infectious Disease. Thank you for this consult. We will continue to follow. Priscilla Mario MD [facility]/MODL /[id number] MTDD
[2020-03-04] MEDS: OLANZAPINE 5 MG TAB PO SCH (20:08)
[2020-03-04] MEDS: ATORVASTATIN 40 MG TAB PO SCH (20:08)
--- NOTE | 2020-03-04 20:44 | Progress Note ---
DATE: SUBJECTIVE: The patient was hallucinating and confused earlier this morning, however, this evening he looks much better, more awake and oriented. His antibiotics have been adjusted and Depakote and his Effexor have been started and Seroquel as well as Haldol have been weaned off. Discussed at length with his and the primary service. MEDICATIONS: Per list. PHYSICAL EXAMINATION: Alert. Follows commands. Diffuse weakness around 5-/5. Ataxic gait. Extraocular muscle movements were intact. Deep tendon reflexes are 1. ASSESSMENT: 1. Encephalopathy on top of dementia and neurodegenerative disease. We will continue with rivastigmine as well as Depakote and Zyprexa. Adjust antibiotics and avoid neurotoxic once. 2. Sepsis with Pseudomonas aeruginosa in the blood. The patient is on antibiotics. 3. Urosepsis and urinary tract infection, on antibiotics. 4. Atrial fibrillation, on Eliquis. 5. Stroke prophylaxis, on statin and Eliquis. 6. Deep venous thrombosis prophylaxis, on Eliquis. 7. Cervical and lumbosacral spondylosis. 8. Dementia with ventriculomegaly. No definite evidence of normal-pressure hydrocephalus that will respond to shunt. RECOMMEND: Continue physical and occupational therapy. We will adjust his Depakote and monitor closely. Avoid Haldol and avoid neurotoxic antibiotics. The patient probably will need to be transferred to an LTAC facility if he needs to stay on antibiotics for a long period of time. He is not ready for rehabilitation at this time. Yamile Campbell MD AM/WANDY /[id number]
[2020-03-04] MEDS ORDERED: ENOXAPARIN SODIUM INJ 100 MG/ML SYR SC SCH (21:00)
[2020-03-04] MEDS ORDERED: SODIUM CHLORIDE 0.9% 250ML 250 ML ONE (21:09)
[2020-03-04] MEDS: VALPROATE SOD INJ 250 MG in SODIUM CHLORIDE 0.9% 100 ML 100 ML INJ SCH (21:15)
[2020-03-04] MEDS: MORPHINE SULFATE 2 MG/ML SYR 1ML IV PRN (23:51)
[2020-03-05] VITALS (8 sets, daily range): BP systolic 121–166; BP diastolic 75–96
[2020-03-05] MEDS: IPRATROPIUM BROMIDE 0.02% 2.5 ML NEB NEB SCH ×4 (01:40→19:22)
[2020-03-05] MEDS: LEVALBUTEROL HCL SOLN NEBU 1.25 MG/3 ML NEB INH SCH ×4 (01:40→19:22)
[2020-03-05] MEDS ORDERED: SODIUM CHLORIDE 0.9% 500ML 500 ML ONE (05:12)
[2020-03-05] MEDS: CEFEPIME 2 GM/NS 0.9% 100 ML 100 ML IV SCH ×2 (05:15→17:00)
[2020-03-05] MEDS: VALPROATE SOD INJ 250 MG in SODIUM CHLORIDE 0.9% 100 ML 100 ML INJ SCH ×3 (06:00→22:13)
[2020-03-05] MEDS ORDERED: SODIUM CHLORIDE 0.9% 100 ML ONE (06:01)
[2020-03-05 06:17] LABS: BASOPHILS # (AUTO) 0.1 (0.0-0.1); BASOPHILS % 0.6 % (0.0-1.0); EOSINOPHILS # (AUTO) 0.1 (0.0-0.4); EOSINOPHILS % 0.4 % (0.0-6.0); HEMOGLOBIN 13.4 g/dL (14.0-18.0); LYMPHOCYTES % 9.7 % (18.0-39.1); MEAN CORPUSCULAR HEMOGLOBIN 30.5 pg (28-32); MEAN CORPUSCULAR HGB CONC 32.7 g/dL (31-35); MEAN CORPUSCULAR VOLUME 93.2 fL (81-99); MONOCYTES # (AUTO) 2.4 (0.2-0.8); MONOCYTES % 11.7 % (4.4-11.3); NEUTROPHILS # (AUTO) 15.7 (2.1-6.9); NEUTROPHILS % 75.9 % (38.7-80.0); PLATELET COUNT 236 x10e3/uL (140-360); RED CELL DISTRIBUTION WIDTH 13.4 % (11.7-14.4)
[2020-03-05 06:33] LABS: ANION GAP 13.9 mmol/L (8-16); BLOOD UREA NITROGEN 15 mg/dL (7-26); BUN/CREATININE RATIO 17 (6-25); CARBON DIOXIDE 25 mmol/L (22-29); CHLORIDE 103 mmol/L (98-107); CREATININE, SERUM 0.86 mg/dL (0.72-1.25); EST GLOMERULAR FILTRATION RATE > 60 ML/MIN (60-); GLUCOSE 125 mg/dL (74-118); POTASSIUM 3.9 mmol/L (3.5-5.1); SODIUM 138 mmol/L (136-145)
--- NOTE | 2020-03-05 07:00 | NUR ---
PATIENT IS AWAKE, ALERT TO SELF, AND IN STABLE CONDITION WITH NO S/S OF RESPIRATORY DISTRESS. NO PAIN INDICATED AT THIS TIME. 02 AT 3L NC. TELEMETRY APPLIED. DILL INTACT AND DRAINING; URINE IS CLEAR AND BROWN IN COLOR. DIAPER APPLIED. SCD'S APPLIED. BED ALARM APPLIED AND THREE RAILS RAISED. CALL LIGHT IS WITHIN REACH, PATIENT INSTRUCTED TO CALL FOR ASSISTANCE NEEDED.
[2020-03-05] MEDS ORDERED: PANTOPRAZOLE SOD 40 MG TABEC PO SCH (07:30)
[2020-03-05] MEDS: DOCUSATE SODIUM 100 MG CAP PO SCH ×2 (08:11→16:02)
[2020-03-05] MEDS: NICOTINE 21 MG/EA PATCH TOP SCH (08:11)
[2020-03-05] MEDS: RIVASTIGMINE PATCH 4.6MG/24 HOURS PATCH TD SCH (08:11)
[2020-03-05] MEDS: PANTOPRAZOLE 40 MG 10ML VIAL IV SCH (08:11)
[2020-03-05] MEDS: LORAZEPAM INJ 2 MG/ML VIAL IM PRN ×2 (08:17→17:42)
[2020-03-05] MEDS: HYDRALAZINE HCL 20 MG/ML VIAL IV PRN (12:17)
--- NOTE | 2020-03-05 16:11 | NUR ---
PATIENT REPOSITION. DILL IRRIGATED- HEMATURIA NOTED IN DILL. PRESENT IN ROOM. PATIENT IS IN STABLE CONDITION WITH NO S/S OF RESPIRATORY DISTRESS. TELEMETRY APPLIED. CALL LIGHT IS WITHIN REACH, PATIENT INSTRUCTED TO CALL FOR ASSISTANCE NEEDED.
--- NOTE | 2020-03-05 16:43 | Progress Note ---
DATE: SUBJECTIVE: The patient is more oriented. He is not as confused. He does not complain of cough or dyspnea. PHYSICAL EXAMINATION: VITAL SIGNS: Blood pressure is 163/70, saturation is 95% on 3 L and pulse is 104. HEENT: Shows no facial swelling or erythema. LYMPHATIC: Shows no submandibular, cervical, or supraclavicular adenopathy. CARDIAC: Reveals regular rhythm with normal S1, S2. CHEST: Auscultation of lungs reveals crackles and rhonchi at the bases. There is no wheezing. ABDOMEN: Soft and nontender. There is no rebound or guarding. EXTREMITIES: No leg edema or calf tenderness. There is no cyanosis or clubbing. SKIN: Shows no rashes. NEUROLOGICAL: Shows no focal abnormalities. LABORATORY DATA: White blood cell count 20.6, hemoglobin is 13.4, the platelet count is 236. BUN to creatinine ratio is normal. Other electrolytes are within normal limits. RADIOGRAPHIC DATA: Chest x-ray shows bilateral airspace opacities. IMPRESSION: 1. Aspiration pneumonia. 2. Metabolic encephalopathy. 3. Oropharyngeal dysphagia. 4. Atrial fibrillation. 5. Chronic systolic congestive heart failure. PLAN: 1. Continue current cardiac regimen. 2. Complete antibiotics. 3. Continue Lovenox. 4. Physical therapy. Adria Busby MD [facility]/MODL /[id number]
[2020-03-05] MEDS ORDERED: METOPROLOL TARTRATE INJ 1 MG/ML VIAL IV PRN (17:00)
--- NOTE | 2020-03-05 17:23 | Progress Note ---
DATE: 03/05/2020 Cardiology Progress Note SUBJECTIVE: The patient is more awake today. He denies chest pain or shortness of breath. Hematuria is noted in Crowley. OBJECTIVE: VITAL SIGNS: Temperature 97.5 degrees, pulse 104, respiratory rate 20, blood pressure 160/70, oxygen 95% on 3 L nasal cannula. GENERAL: Elderly man, in no acute distress. Awake and alert. LUNGS: Decreased breath sounds at the bases, otherwise clear to auscultation. CARDIOVASCULAR: Tachycardic, irregular rhythm. Normal S1 and S2. ABDOMEN: Soft, nontender. EXTREMITIES: No edema. CARDIAC MEDICATION: Atorvastatin 40 mg p.o. at bedtime. LABORATORY DATA: WBC 20.6, hemoglobin 13.4, hematocrit 41, platelets 236. Sodium 138, potassium 3.9, chloride 103, CO2 25, BUN 15, and creatinine 0.86. BNP is 224. Blood culture growing Pseudomonas aeruginosa in one culture. TELEMETRY: Personally reviewed and interpreted revealing atrial flutter with borderline rate control. IMPRESSION: 1. Newly diagnosed atrial flutter. 2. Aspiration pneumonia. 3. Pseudomonas aeruginosa bacteremia. 4. Altered mental status. 5. Acute on chronic systolic heart failure. 6. Coronary artery disease. 7. Hypertension. 8. Rhabdomyolysis. RECOMMENDATIONS: Echocardiogram demonstrated mildly reduced systolic function. BNP is now elevated. Start gentle diuretics to keep the patient net even to mildly net negative. As the patient is not rate controlled and blood pressure is elevated, we will start low-dose metoprolol. Use aspirin for the time being, given patient's recent agitation as he is high risk for falling and thus bleeding on anticoagulation. Continue supportive care. Antibiotics per Infectious Disease. Thank you for this consult. We will continue to follow. Priscilla Mario MD [facility]/MODL /[id number] MTDD
[2020-03-05] MEDS: FUROSEMIDE INJ 10 MG/ML 2 ML VIAL IV SCH (17:24)
--- NOTE | 2020-03-05 19:00 | NUR ---
PATIENT STARTED TO GET CONFUSED. PRN MEDICATION WAS GIVEN BY DAY SHIFT RN 2 HOURS AGO. CHARGE NURSE IS AWARE.
--- NOTE | 2020-03-05 19:09 | NUR ---
PATIENT IS IN STABLE CONDITION WITH NO S/S OF RESPIRATORY DISTRESS. NO PAIN VOICED. TELEMETRY APPLIED. DILL INTACT AND DRAINING- HEMATURIA NOTED. DIAPER APPLIED. BED ALARM APPLIED. CALL LIGHT IS WITHIN REACH, PATIENT INSTRUCTED TO CALL FOR ASSISTANCE NEEDED. BEDSIDE SHIFT REPORT GIVEN TO ONCOMING NURSE.
[2020-03-05] MEDS: OLANZAPINE 5 MG TAB PO SCH (20:21)
[2020-03-05] MEDS: ATORVASTATIN 40 MG TAB PO SCH (20:21)
[2020-03-05] MEDS: MORPHINE SULFATE 2 MG/ML SYR 1ML IV PRN (20:30)
[2020-03-05] MEDS ORDERED: METOPROLOL TARTRATE 25 MG TAB PO SCH (21:00)
--- NOTE | 2020-03-05 22:29 | NUR ---
PATIENT CONTINUE TO BE AGITATED. TRIED CALLING DR. GARCIA. BOTH PHONE NOT WORKING.TALKED TO ANGEL SOLORIO. SUGGESTED TO CALL DR. JEEVAN DON, NO ANSWER.
[2020-03-06] VITALS (7 sets, daily range): BP systolic 144–181; BP diastolic 62–89
--- NOTE | 2020-03-06 00:09 | Progress Note ---
DATE: SUBJECTIVE: The patient is calm, in no acute distress today. No hallucinations reported. MEDICATIONS: Per medication list. PHYSICAL EXAMINATION: VITAL SIGNS: Blood pressure 166/89, temperature 99. GENERAL: The patient is alert. Follows simple commands. No ophthalmoplegia. HEENT: Pupils are reactive bilaterally to light. NEURO: Diffuse weakness of around 5-/5. Decreased vibration and proprioception distally. Deep tendon reflexes are 1. Plantars are equivocal. Gait not tested. No dysmetria noted. ASSESSMENT: 1. Encephalopathy, septic on top of dementia and neurodegenerative disease much better on Depakote as well as Exelon and Zyprexa. We will continue same for now. 2. The patient being treated for sepsis. 3. Ventriculomegaly of equivocal significance probably part of the degenerative process. 4. Recommend continue current treatment. Yamile Campbell MD AM/MODL /[id number]
[2020-03-06] MEDS: LORAZEPAM INJ 2 MG/ML VIAL IM PRN ×2 (00:29→09:17)
--- NOTE | 2020-03-06 00:59 | Progress Note ---
DATE: 03/05/2020 SUBJECTIVE: The patient remains in room 288 and currently has one-to-one sitter at bedside. The patient is too confused to provide ROS. He is unable to give correct location; i.e., the hospital. He knows that his first name is Janusz and that the month is February. However, he is anxious, restless, attempting to get out of bed without assistance and has a significant fall risk. OBJECTIVE: VITAL SIGNS: Temperature 97.7, pulse 95, blood pressure 139/79, respirations 20, oxygen saturation 92%. Intake and output mL. GENERAL: Supine. No acute distress, but restless. LUNGS: Crackles and rhonchi at the bases. No wheezing. Currently oxygen at 5 L/minute via nasal cannula. HEENT: Oropharynx clear. NECK: Supple. CARDIOVASCULAR: Irregularly irregular, tachycardic. No IV fluids. He has a peripheral IV. ABDOMEN: Bowel sounds positive. Soft, nontender. Crowley catheter with hematuria noted. Diaper in place. EXTREMITIES: No pitting edema. No clubbing, cyanosis, or signs of DVT. He has bilateral SCDs in place. NEUROLOGICAL: Pupils are equal, round, and reactive to light at 2+. GCS 13, eye 4, verbal 4, motor 5. Redirection required. LABORATORY DATA: WBCs 20.6, hemoglobin 13.4, hematocrit 41, platelets 236. Sodium 138, potassium 3.9, chloride 103, CO2 of 25, BUN 15, creatinine 0.86, estimated GFR greater than 60, glucose 125, calcium 9.0. Yesterday, the B type natriuretic peptide was 224.8. IMAGING/OTHER: No new imaging results. ASSESSMENT AND PLAN: 1. Severe sepsis, POA, Pseudomonas aeruginosa bacteremia. WBCs 20.6 (17.81). Merrem has been discontinued and the patient is currently on cefepime 2 g IV every 12 hours. Per blood culture and sensitivity, Pseudomonas has a sensitivity to cefepime less than equal to 4 MARCIA. Continue antibiotics per Infectious Disease recommendations. 2. Aspiration pneumonia. Continue bronchodilators and antibiotics. Pulmonology following speech therapy to continue to follow. Continue supplemental oxygen as needed and wean as tolerated. 3. Metabolic encephalopathy on top of neurodegenerative disease and dementia, recently with hallucinations. Neurology and Psychiatry following. Ventriculomegaly is present. No improvement noted post drainage of cerebrospinal fluid. Thus, the patient is not likely to benefit from a shunt. No surgery plan by neurosurgeon at this point. Awaiting completion of EEG per order. Zyprexa and Depakote have been started. Neurology recommends avoiding Haldol when possible. Repeat CT of the head was without change. Appreciate recommendations from all consultants. Continue one-to-one sitter for now. 4. Severe oral and moderate to severe pharyngeal dysphagia. Speech therapy continues to follow. The patient has been combative at times in the past thus likely difficult to complete neuromuscular electrical stimulation has ordered. The patient is n.p.o. as he failed his modified barium swallow. Once he is more calm, hopefully an NG tube can be placed for tube feedings. 5. Ambulatory dysfunction with weakness and frequent falls, status post fall on 02/29/2020. Physical Therapy following. The patient has been more confused recently and unable to participate with physical therapy. 6. Newly diagnosed atrial flutter, rate poorly controlled. Case had been discussed with Dr. Mullins and the patient was on Eliquis. The patient continues to be a significant fall risk and Eliquis has been changed to Lovenox 100 mg SC every 12 hours. Low-dose metoprolol has been added given elevated heart rate. 7. Acute on chronic systolic heart failure. Estimated ejection fraction 25% to 30%. Monitor chest x-ray results. Monitor intake and output as possible. Yesterday, B-type natriuretic peptide 224.8. 8. Urinary retention with bilateral nonobstructive urinary calculi and benign prostatic hyperplasia with hematuria. Urology following. Irrigation of Crowley has been ordered when better multiple procedures are planned. 9. Active smoker with [id number], probable COPD without exacerbation. Continue supplemental oxygen and Nicoderm patch. Monitor oxygen saturation. 10. Hyperlipidemia. Continue home dose of atorvastatin. 11. Prophylaxis, SCDs, Lovenox and Protonix. DISCHARGE PLANNING: Planned disposition is [facility]. Case Management to speak with the patient's tomorrow. Inpatient, billing code [id number], time spent greater than 45 minutes. Dictated by Terrence Jacobson NP Raheem Dodson MD HWP/MODL /[id number]
[2020-03-06] MEDS: LEVALBUTEROL HCL SOLN NEBU 1.25 MG/3 ML NEB INH SCH ×2 (01:21→01:22)
[2020-03-06] MEDS: IPRATROPIUM BROMIDE 0.02% 2.5 ML NEB NEB SCH ×2 (01:23→07:53)
[2020-03-06] MEDS: CEFEPIME 2 GM/NS 0.9% 100 ML 100 ML IV SCH ×2 (05:00→17:13)
[2020-03-06] MEDS: VALPROATE SOD INJ 250 MG in SODIUM CHLORIDE 0.9% 100 ML 100 ML INJ SCH ×3 (06:01→22:00)
--- NOTE | 2020-03-06 08:54 | NUR ---
Patient is agitated , combative, trying to get out from bed and pulling IV , at bed side also requesting to give some medication to calm him down
[2020-03-06] MEDS: RIVASTIGMINE PATCH 4.6MG/24 HOURS PATCH TD SCH (09:18)
[2020-03-06] MEDS: NICOTINE 21 MG/EA PATCH TOP SCH (09:18)
[2020-03-06] MEDS: FUROSEMIDE INJ 10 MG/ML 2 ML VIAL IV SCH (09:18)
[2020-03-06] MEDS: DOCUSATE SODIUM 100 MG CAP PO SCH ×2 (09:18→17:00)
[2020-03-06] MEDS: PANTOPRAZOLE 40 MG 10ML VIAL IV SCH (09:19)
--- NOTE | 2020-03-06 10:00 | NUR ---
Plant Propagator followed up w/ pt's . Reminded pt's of availability of truck supervisor services. Discussed self-care. Will continue to follow as able. CHAD Valdezlain Spiritual Care Department O: [phone]
--- NOTE | 2020-03-06 10:11 | Progress Note ---
DATE: SUBJECTIVE: The patient is seen and examined today. The patient appears same. No new event noted. OBJECTIVE: GENERAL: Not in acute distress, but restless. LUNGS: Decreased breath sounds on the bases with occasional rhonchi. ABDOMEN: Soft, mildly tender. EXTREMITIES. No pitting edema. NECK: Supple. HEENT: Oropharynx clear. CARDIOVASCULAR: Regular rate and rhythm. RESTORER PAPER AND PRINTS: Intact. LABORATORY AND IMAGING DATA: Reviewed. ASSESSMENT AND PLAN: The patient with history of severe sepsis, Pseudomonas aeruginosa bacteremia with leukocytosis, currently on cefepime. White blood cells fluctuating. Smear shows mostly neutrophils. So far workup did not show any bone marrow disorder. RECOMMENDATIONS: Continue current antibiotic treatment. Metabolic encephalopathy. Following urologist. Continue current medication. We will continue remaining care. We will follow the patient closely. MD OTONIEL Avila/MODL /[id number]
[2020-03-06] MEDS ORDERED: OLANZAPINE 5 MG TAB PO PRN (11:15)
[2020-03-06] MEDS ORDERED: LORAZEPAM 0.5 MG TAB PO PRN (11:30)
--- NOTE | 2020-03-06 12:17 | NUR ---
ST NOTE: Pt not seen today, continued agitation and hallucinations. Pt is now NPO and has consult for peg tube due to status and inability to safely eat by mouth. Pt not appropriate for NMES at this time. Will d/c Speech Therapy intervention at this time. Handoff to MARCO Romo
--- NOTE | 2020-03-06 12:56 | NUR ---
Inserted NG tube with the assistance of Scrapper, patient tolerated well, patient followed the command to swallow as NG tube advanced , he is up and alert
--- NOTE | 2020-03-06 13:12 | Progress Note ---
DATE: SUBJECTIVE: Mr. Canseco is lethargic today. He received some medication according to the to make him comfortable. He was agitated. The patient who is with no fever. His spinal fluid cultures came back negative. Viral culture was negative. His blood culture shows Pseudomonas aeruginosa, sensitivity pattern reviewed. LABORATORY DATA: Showed a white count 20, hemoglobin 13, hematocrit 41, platelet 236. Sodium 138, potassium 3.9, creatinine 0.86. MEDICATIONS: The patient who is currently on Protonix, Lasix, Exelon patch, Nicoderm, cefepime, Xopenex, Haldol, Seroquel, Tylenol and Zyprexa. IMPRESSION: Altered mental status, probably metabolic due to medication, Neurology is following. Sepsis on admission, getting better. Recheck of blood cultures. Aspiration pneumonia, dysphagia. Consider feeding tube. Congestive heart failure. We will follow. MD MARY Miller/WANDY /[id number]
--- NOTE | 2020-03-06 14:02 | Electroencephalogram ---
DATE OF STUDY: 03/01/2020 REQUESTING PHYSICIAN: TECHNIQUE: An 18 channels of 20-minute EEG recording utilizing international 10/20 system done today. EEG data were digitally acquired and analyzed. FINDINGS: The background activity consists of poorly regulated 7 hertz rhythmic waveform noted above both posterior quadrants. Intermixed with this was a moderate amount of low to medium voltage polymorphic 4-6 hertz waveforms over both hemispheres. Sleep, this is an awake and asleep recording. IMPRESSION: This EEG shows [id number]-gp-[id number] degree of cerebral dysfunction such as seen in [id number] encephalopathy. Yamile Campbell MD AM/MODL /[id number]
--- NOTE | 2020-03-06 14:07 | NUR ---
PT CHOSE [facility], FILED IN CHART AND FAXED CLINICALS
--- NOTE | 2020-03-06 14:36 | Diagnostic Imaging Report ---
Abdomen, one view KUB INDICATION: ^Check NG tube placement ^[id number] ^1320 Comparison: None available. Discussion: Enteric tube is seen projecting over the stomach. Intraluminal contrast is identified within the stomach and colon. Interstitial opacities are noted at the lower lobes, better evaluated on recent chest x-ray. No dilated loops of bowel are identified in the visualized abdomen. IMPRESSION: Enteric tube is identified projecting over the gastric body. Signed by: Last Sanchez MD on 03/06/2020 2:33 PM
--- NOTE | 2020-03-06 15:13 | Consultation ---
DATE OF CONSULTATION: 03/06/2020 Psychiatric Consultation REASON FOR CONSULTATION: To evaluate the patient's psychosis. HISTORY OF PRESENT ILLNESS: The patient is an 79-year-old male, admitted to the hospital for ataxia and normal pressure hydrocephalus. Psychiatric consultation is called to evaluate the patient's psychosis. As per the medical record, the patient came to the hospital with complaints of difficulty walking as well as falls, weak. He has history of cancer, hypertension, hyperlipidemia, and history of cardiac stent. Upon evaluation today, the patient is found to be in the room with the . He is sleeping. He recently received p.r.n. IM medication as per the . Two hours ago, he received 0.5 IM q.6 hours as needed. The patient is unable to answer any question, as he received p.r.n. IM medication. The was providing most of the information. reports that prior to the hospitalization, the patient was living at home. He had back surgery about two and half months ago. He was able to walk with a walker and oriented to situation and function at home independently except for some help with some equipment. However, he fell and was not able to get up and since his hospitalization, he has been more confused. The patient has no psychiatric illness in the past. This morning, he was trying to get out of the bed and got p.r.n. IM medication. The patient has not been able to eat and he is currently on n.p.o. He hallucinated one day few days ago, but has not been hallucinating since. As per the nurse, the patient is currently n.p.o. due to fear of aspiration pneumonia. The patient's x-ray was done on March 04 as the most recent one and the patient is currently being treated for aspiration pneumonia. PAST PSYCHIATRIC HISTORY: The patient has no past psychiatric history. He has never attempted suicide. Does not drink alcohol or use any drugs. FAMILY HISTORY: None. SOCIAL HISTORY: The patient lives with the . MENTAL STATUS EXAM: The patient is elderly male. He is drowsy and lethargic. Assessment is limited due to the patient's confusion. Psychomotor state is retardation. Affect is flat. CURRENT MEDICATIONS: 1. Protonix. 2. Lasix. 3. Exelon patch. 4. Nicotine. 5. Colace. 6. Ativan 0.5 IM q.6 hours as needed. 7. Valproate sodium. 8. Cefepime. 9. Atrovent. 10. Xopenex. 11. Morphine sulfate. 12. Hydralazine. 13. Haldol 2 IM q.6 hours as needed. 14. Seroquel 25 q.6 hours as needed. 15. Ativan 1 p.o. q.6 hours as needed. 16. Hydrocortisone. 17. Acetaminophen. 18. Zyprexa 5 mg p.o. at bedtime. 19. Atorvastatin. 20. Metoprolol. 21. Ondansetron. 22. . CURRENT LABORATORY DATA: WBC 20.6, RBC 4.4, hemoglobin 13.4, and hematocrit 41. Sodium 138, potassium 3.9, chloride 103, CO2 25, BUN 16, and creatinine 0.86. ASSESSMENT: Unspecified psychosis/delirium, multifactorial. PLAN: 1. To discontinue Zyprexa 5 mg at bedtime, as the patient is n.p.o. 2. Discontinue Seroquel p.r.n. 3. Add Zyprexa 2.5 mg p.o. q.6 hours as needed. 4. Reduce Ativan 1 mg p.o. q.6 hours as needed to 0.5 p.o. q.6 as needed. 5. Continue with Haldol 2 mg IM q.6 hours as needed. 6. Exelon patch and Depakote as per Neurology. 7. Discussed the case with Dr. Eldirdge. 8. Monitor for agitation. Thank you for this consultation. Dictated by Sagrario Starkey PA-C Crow Eldridge MD QTV/MODL /[id number]
--- NOTE | 2020-03-06 15:37 | Diagnostic Imaging Report ---
TECHNIQUE: Frontal view of the chest. INDICATION: ^check PICC line placement ^[id number] ^1510 COMPARISON: 02/28/2020 DISCUSSION: Limited evaluation due to portable technique. Lines and hardware: Interval placement of right PICC is noted with tip pending at the mid SVC. Enteric tube is seen coursing inferiorly out of the field of view. Overlying EKG leads are noted. Heart and mediastinum: Stable cardiomegaly and central gastric congestion. Lungs and pleura: Interval worsening of interstitial lower lobe predominant airspace opacities are noted. Trace effusions are stable. Negative for pneumothorax. Soft tissues and bones: No acute abnormality. IMPRESSION: 1. Right PICC is noted with tip projecting at the mid SVC. 2. Interval worsening of vascular congestive changes and is predominant interstitial airspace opacities. Signed by: Last Sanchez MD on 03/06/2020 3:34 PM
--- NOTE | 2020-03-06 15:56 | NUR ---
Checked with Radiology, per them the NG tube is OK to use, also the PICC line is able to use, notified Terrence and read back the radiology result with CXR & KUB.
--- NOTE | 2020-03-06 16:48 | NUR ---
Nutrition Intervention Note RD Recommendation(s) for Physician: -Recommend Jevity 1.2 @ goal rate of 65 mL/hr (provides 1872 kcal, 87 g protein) -Water/fluid management per MD Plan of Care: RD following, monitoring for tolerance and adequacy, enteral nutrition recommendation Nutrition reason for involvement: consult for tube feed recommendation RD Assessment (03/06) RD received consult for tube feeding recommendation. It is noted that pt is lethargic and agitated today per MD note. Pt received an NG tube. Recommendations provided. Will continue to monitor (03/04) Initial encounter with patient. Pt was not able to provide a nutrition Hx due to altered mental status. Pt's was present. Pt not safe for Po intake and will likely require nutrition support to meet terminal gauger nutrition needs. has experience with a PEG tube with another family member. Pt is currently NPO due to aspiration/silent aspiration. MD to discuss treatment options with today. 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 NKFA. Principal Problems/Diagnoses:Ataxia, normal pressure hydrocephalus, weakness PMH: Hyperlipidemia, tobacco, diverticulosis, CAD GI: soft/non-tender abdomen, last recorded BM 03/04 Skin: intact Labs: 03/06: Na 138, K 3.9, BUN 15, Cr 0.86, Glu 125, Ca 9.0 03/04/2020)Glucose 138 Meds: protonix, lasix, colace, antibiotic, morphine, Lipitor, metoprolol, zofran Ht:69 in. Wt:208 lbs BMI:30.7kg/M2 IBW:160lbs Malnutrition Evaluation (03/04/20) The patient does not meet criteria for a specified degree of malnutrition at this time. Will re-evaluate at follow-up as appropriate. Nutrition Prescription (Diet Order): NPO Estimated Nutritional Needs: 9682-5813 calories/day (22-25 kcal/kg IBW) 87-109 g protein/day (1.2-1.5 g/kg IBW) Diet Adequacy: NPO Diet Education Needs Assessment: Diet education not indicated. Nutrition Care Level: High Nutrition Diagnosis: Swallowing difficulty related to motor causes as evidenced by need for enteral nutrition. Goal: Patient will meet 75-100% of estimated needs by follow up Progress: goal not met Interventions: Commercial food, Composition, Rate, Route, Collaboration with other providers. Monitoring/Evaluation: Total energy intake, Total protein intake, Formula/Solution, Weight change Signed: Elaina Daniel RD, LD
--- NOTE | 2020-03-06 17:22 | NUR ---
Patient is still lethargic , deep sleepy, snoring, skin warm to touch, vitals stable. No acute distress noted, at bed side is concerned about he is sleepy this much time since got the Ativan IM this morning, notified Dr Menjivar, new order recvd to do STAT CT Brain WO, Keep monitoring
--- NOTE | 2020-03-06 17:28 | Progress Note ---
DATE: 03/06/2020 SUBJECTIVE: Mr. Canseco was seen on rounds. is at the bedside. Events noted. The patient's deterioration . He did receive some medications in order to help calm down, right now he is very sleepy. NG tube was placed this morning and PICC line has just been placed. For now, he is sleeping and sedated. OBJECTIVE: VITAL SIGNS: Temperature 97.6, respirations 25, heart rate 101, blood pressure 144/89, cognitive issues. HEART: Regular. LUNGS: Fair air entry. ABDOMEN: Nondistended and nontender. The patient has NG tube in place. We will continue supportive care. Medical management ongoing. Leukocytosis is up to 20.6, hemoglobin 13.24, hematocrit 41.0, platelets of 236. . The patient will be going to [facility] for continuation of care. Discussed with . Koby Anne DO RPL/MODL /[id number]
--- NOTE | 2020-03-06 18:58 | NUR ---
Patient off the unit for CT brain, no acute distress noted
--- NOTE | 2020-03-06 19:23 | NUR ---
BROUGHT THE PATIENT TO THE ROOM AFTER CT SCAN.UPON ASSESSMENT NO PULSE NOTED.INITIATED CODE BLUE.VIDEO OPERATOR OF DR AZIZA ORTIZ WAS IN THE ROOM. NATHANAEL GAVIRIA WAS NEAR THE PATIENT SIDE.STARTED CPR.MONITORING VITAL SIGNS.
--- NOTE | 2020-03-06 19:46 | NUR ---
ER DECLARED .NOTIFIED FAMILY MEMBER .NOTIFIED TO .
--- NOTE | 2020-03-06 20:00 | Diagnostic Imaging Report ---
EXAMINATION: Head CT without contrast. HISTORY:Altered mental status. COMPARISON:CT brain from 03/03/2020. TECHNIQUE: Multidetector axial images were obtained from the foramen magnum to the vertex without contrast. The images were reconstructed using brain and bone algorithms. Thin section brain images were reformatted into coronal and sagittal planes. Dose modulation, iterative reconstruction, and/or weight based adjustment of the mA/kV was utilized to reduce the radiation dose to as low as reasonably achievable. Intravenous contrast: None IMAGE QUALITY: Suboptimal evaluation due to motion-related streak artifacts. FINDINGS: Skull/scalp: No lytic or blastic. lesions. No surgical changes. Parenchyma: Suboptimal evaluation due to motion artifact, despite the limitation no gross hemorrhage, mass or acute major vascular territorial infarct. Nonspecific bilateral frontoparietal patchy white matter hypodensity are likely related to small vessel ischemic changes. Unchanged cortical-based hypodensity in the posterior aspect of left temporal lobe represents chronic encephalomalacia from prior vascular insult. Arteries: No density suggestive of thrombosis. Atherosclerotic calcification in bilateral carotid siphon and V4 segment of the vertebral arteries. Dural sinuses: No abnormal density suggestive of thrombosis. Ventricles: Unchanged moderate ventricular dilatation disproportionate to the amount of cerebral volume loss may represent normal pressure hydrocephalus in appropriate clinical setting. Extra-axial spaces: No abnormal density. Brain volume: Normal for age. Craniocervical junction: No mass, Chiari malformation, or basilar invagination. Sella: No mass. Paranasal/mastoid sinuses: Imaged portions unremarkable. IMPRESSION: Suboptimal evaluation due to motion artifacts, despite the limitation no gross acute intracranial abnormality. No significant change since CT brain from 03/03/2020. Chronic findings: 1. Moderate ventriculomegaly disproportionate to the amount of cerebral volume loss may represent normal pressure hydrocephalus in appropriate clinical setting. 2. 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 3. Mild to moderate supratentorial white matter microvascular ischemic changes. Signed by: Dr. Sylwia Sifuentes M.D. on 03/06/2020 7:57 PM
--- NOTE | 2020-03-06 20:10 | NUR ---
Tele box returned to the dept.d/c wing.tip was intact.
--- NOTE | 2020-03-06 20:53 | NUR ---
ASSESSMENT: Spiritual distress Conductor/Brakeman called back. Pt's family actively grieving pt's . Pt's family expressing emotions thru words and tears. Intervention: Facilitated storytelling. Provided empathic listening and prayer. Outcome: Pt's family expressed appreciation for support. CHAD Frost Spiritual Care Department O: [phone]
[2020-03-06] MEDS: ATORVASTATIN 40 MG TAB PO SCH (21:00)
--- NOTE | 2020-03-06 22:50 | Progress Note ---
DATE: 03/06/2020 Cardiology Progress Note SUBJECTIVE: The patient was discussed with staff. He was apparently agitated and combative overnight, attempting to pull out his IV as well as climbing out of bed. The patient is unarousable after administration of Ativan this morning. OBJECTIVE: VITAL SIGNS: Temperature 97.7 degrees, pulse 78, respiratory rate 20, blood pressure 155/80, oxygen 95% on 3 L nasal cannula. GENERAL: Elderly man, in no acute distress, somnolent. LUNGS: Decreased breath sounds at the bases, otherwise clear to auscultation. CARDIOVASCULAR: Tachycardic, irregular. Normal S1 and S2. ABDOMEN: Soft, nontender. EXTREMITIES: No edema. CARDIAC MEDICATIONS: Furosemide 20 mg IV daily, atorvastatin 40 mg p.o. at bedtime, metoprolol tartrate 25 mg IV q.6 hours as needed. LABORATORY DATA: None today. TELEMETRY: Personally reviewed and interpreted revealing atrial flutter with borderline rate control. IMPRESSION: 1. Newly diagnosed atrial flutter. 2. Aspiration pneumonia. 3. Pseudomonas aeruginosa bacteremia. 4. Altered mental status. 5. Gppbf-ob-tlbbgor systolic heart failure. 6. Coronary artery disease. 7. Hypertension. 8. Rhabdomyolysis. RECOMMENDATIONS: Echocardiogram demonstrated normal LV systolic function. The patient was started on IV diuretics as BNP is now slightly elevated. The patient's rate control is borderline; however, due to his n.p.o. status, he could not be started on p.o. metoprolol, continue IV as needed for the time being. Given patient's agitation, he is high risk for falls. We will keep the patient off anticoagulation. Continue aspirin alone. Continue supportive care. Antibiotics per Infectious Disease. Thank you for this consult. We will continue to follow. Late entry. Patient was seen at 6:15 PM. Priscilla Mario MD ABS/MODL /[id number] MTDD
[2020-03-06] MEDS ORDERED: EPINEPHRINE HCL 1:1000 1ML 1 MG/ML AMP IV ONE (23:14)
[2020-03-06] MEDS ORDERED: ATROPINE SULFATE 0.1 MG/ML 10ML SYR IV ONE (23:14)
--- NOTE | 2020-03-06 23:15 | NUR ---
Released body to home.sending all the belongings with family member.
--- NOTE | 2020-03-07 13:54 | Discharge Summary ---
PRIMARY CARE PHYSICIAN: Dr. Bruce Lewis is listed as primary care physician, however, family states that the patient's primary care physician is Dr. Nimesh Sheffield in [place]. CONSULTING PHYSICIANS: 1. Dr. Donna Arana with Infectious Disease. 2. Dr. Phyllis Borrero with Hematology. 3. Dr. Yamile Campbell with Neurology. 4. Dr. Sai Quinones with Urology. 5. Dr. Roge Resendiz with Cardiology. 6. Dr. Koby Anne with Physiatry. 7. Dr. Buck Gabriel with Neurosurgery. 8. Dr. Crow Eldridge with Psychiatry. 9. Dr. Adria Busby with Pulmonology/Critical Care Medicine. Outpatient office receptionist, Dr. Nimesh Ibarra. CHIEF COMPLAINT: Dizziness, weakness, malaise, difficulty walking with frequent falls. HISTORY OF PRESENT ILLNESS: The patient is an 79-year-old male, who per his had been having unsteady gait for the past few months prior to admission with progressive falls and fell twice the day prior to arrival. She stated that the morning of 02/27, he was much more confused, having altered mental status from baseline. She denies any steroids or new prescriptions recently. Lately, the patient had been forgetful, having progressive gait problems, ataxia, urinary incontinence. The patient was seen in the emergency department by Dr. Faust, emergency room physician and an order for a Neurology consult was placed. PAST MEDICAL HISTORY: He had hypertension at one time, but was taken off his blood pressure medications. He only took atorvastatin and coenzyme Q10 at home for hyperlipidemia. PAST SURGICAL HISTORY: Cardiac stents. SOCIAL HISTORY: The patient smoked about a pack a day for 60 years. No alcohol or illicit drug use. ALLERGIES: NO KNOWN ALLERGIES. ADMITTING DIAGNOSES: 1. Severe sepsis with urinary tract infection, present on admission. 2. Resolving metabolic encephalopathy, likely due to severe sepsis with urinary tract infection, possibly on top of neurodegenerative disease; probable normal-pressure hydrocephalus. 3. Ambulatory dysfunction with weakness and frequent falls (status post fall in the emergency room waiting area). 4. Urinary retention, bilateral nonobstructing renal calculi and benign prostatic hypertrophy. 5. Diverticulosis without diverticulitis. 6. Active smoker with 60 pack years, probable COPD without exacerbation. 7. Coronary artery disease with cardiac stents in situ. During his stay, the patient continued to complain of dizzy spells and weakness. He continued to have periods of confusion and at times was attempting to get out of bed without assistance and also combative at times actively attempting to kick the nurses. He was not eating well. Reported that he had been seeing double for about the last two weeks. Diagnosis list updated daily during his stay, found to have severe sepsis, POA with source unclear with a fever of 102.2 on admission, WBCs 29.9. His white blood cell count became as high as 44.69 on 02/27. After that, it trended down quickly on 03/01 29.91, on 03/02 20.72 and on 03/03 16.7, however, after that, it began to trend back up and on 03/05 was 20.6. Per his initial brain CT, he had mild to moderate supratentorial ventriculomegaly which was slightly out of proportion to sulcal prominence. Per Neurology, he did not have normal-pressure hydrocephalus. CT of the head was very abnormal, but no acute intracranial abnormalities and showed [id number] supratentorial chronic microvascular ischemic change, focal areas of encephalomalacia in the left posterior temporal lobe and left temporal pole, which may be related to remote trauma and/or infarcts. There was mild generalized cerebral volume loss. The chest x-ray on 02/27 showed diffuse interstitial prominence with a few ill-defined interstitial opacities at the lung bases, which could relate to atypical viral infection versus fluid overload/edema. No large effusions or lobar consolidation were noted. CT of the chest that same day showed diffuse moderate emphysematous changes throughout the lungs with multifocal areas of pleural-based scarring, most prominent at the lung bases. Diffuse interstitial prominence is also noted with slight mosaic attenuation of the lungs which probably relates to chronic emphysematous change and scarring. No focal suspicious infiltrate was identified at that time. CT of the abdomen and pelvis showed bilateral nonobstructing renal calculi without hydronephrosis, enlarged prostate, diverticulosis coli without diverticulitis. Bilateral adrenal adenomata and/or hyperplasia. On 02/28, the patient underwent a lumbar puncture. Opening pressure was 6 mmHg and approximately 12 mL of serosanguineous spinal fluid was removed and sent to the laboratory. It was a successful fluoroscopy guided lumbar puncture, but it is noted that the cerebrospinal fluid had a considerable amount of blood as evidenced by RBCs 7178. The CSF WBC was 15, cell count 2, total cell count 100, neutrophils 88, lymphocytes 7, monocytes 5, glucose 90, total protein 172.2. VDRL was nonreactive. This was not indicative of bacterial meningitis and not synonymous with infection in the cerebrospinal fluid. On 02/28, MRI of the brain with and without contrast was done, which showed unchanged mild to moderate supratentorial ventriculomegaly, slightly out of proportion to the sulcal prominence and going what the CT of the head showed, radiologist suggested correlating for communicating hydrocephalus. There were no acute intracranial abnormalities. MRI of the lumbar spine showed degenerative changes from L1-L2 through L5-S1 with moderate left foraminal narrowing at L1-L2, moderate right foraminal narrowing L3, L4 and moderate canal stenosis at L2-L3. MRI of the cervical spine also showed degenerative changes. Please see EMR for specifics. Modified barium swallow was done 03/02, penetration and aspiration was noted with thin liquids and there was vallecular residue. His RPR was negative. There was a desire to obtain an EEG, however, the patient was moving around too much to obtain one. On or about 03/01, the patient developed new onset atrial flutter with controlled ventricular response and Cardiology was consulted. There was discussion about whether to continue the anticoagulation and it was initially decided to help with Dr. Mullins with Dr. Resendiz's group to continue Eliquis. This was later changed to Lovenox and shortly thereafter discontinued. According to the patient's , he had a normal stress test and echocardiogram in September when he saw his office receptionist. Based on the speech therapist's findings with assistance from physician, it was determined that he had severe oral and [id number]-ushbwz pharyngeal dysphagia. Early on, an order has been entered for inpatient rehab. However, the patient was confused and unable to participate for 3 hours with therapies. On 03/03, the patient was very agitated and hallucinating, attempting to get out of bed without assistance, attempting to kick staff members, talking to animals and people who were not there and a consult for Psychiatry was entered. Due to the probable aspiration pneumonia, Pulmonology consult was obtained and DuoNebs were started. Chest x-ray obtained. Rivastigmine patch was added. There were plans to wean off the Seroquel, avoid Haldol and Zyprexa as well as Depakote were started. Repeat CT of the head was without change. Per the physical therapist, the patient remained confused with agitation and was unable to participate with physical therapy at that point. Echogram done on 03/01 showed an estimated ejection fraction of 25 to 30%. Neuromuscular electrical stimulation. Protonix and Eliquis were all ordered. By 03/04, the patient had 9 consulting physicians. He was sleeping more, whereas the day before he had been agitated and hallucinating. Final blood culture results showed Pseudomonas aeruginosa bacteremia. Rocephin, azithromycin and ampicillin were all discontinued. The patient was placed on Merrem 1 g IV every 8 hours by Infectious Disease. Atrovent every 6 hours was ordered. Xopenex restarted. It is determined that the patient had metabolic encephalopathy on top of neurodegenerative disease and dementia along with hallucinations. Per Neurology, it would be best to adjust antibiotics and avoid any that are neurotoxic such as cefepime. Pseudomonas aeruginosa was sensitive to ceftazidime, cefepime and imipenem as well as ofloxacin. However, the cefepime was chosen to be used. Cefepime continued and Merrem was discontinued. There are plans for 2 weeks of antibiotics. Unfortunately, the patient's white blood cell count reflects that he was likely beginning to fail this treatment and become more septic. He required a one-to-one sitter at the bedside at night in order to keep him from getting out of bed on his own and falling. WBCs climbed up to 20.6 on 03/05. Bronchodilators were used for the aspiration pneumonia. The patient had an NG tube placed as he was too confused and at times too lethargic to eat. On 03/06, I began speaking to the patient's , Jody regarding possibly putting in a PEG tube for feeding while he recovered from the sepsis. The patient's seemed receptive to this. Due to the patient's significant fall risk, Lovenox that had been started in place of the Eliquis was discontinued by Dr. Mario with Cardiology. Low-dose metoprolol was added as he had an elevated heart rate. His plan disposition was changed to long-term acute care hospital and in fact the paperwork had already been faxed on the patient was slated to transfer to an LTAC of his 's choice. On 03/06, repeat head CT was ordered I believe by Neurology Service and the patient went down for the head CT, apparently not having any problems before or during the CT. Once he arrived back, MARCO Sanches noted that the patient's color did not look well and she fell for a pulse, he had none and a Code Blue was started. Dr. Farley, the emergency department physician, as well as the Code Blue Team began ACLS. Despite aggressive attempts to obtain ROSC, the patient at 1946 on 03/06/2020. The patient's remained at his bedside during the Code Blue. The patient was in PEA and received several doses of epinephrine. He received sodium bicarbonate. He did not progress well, went into asystole rhythm and he was not resuscitated but pronounced . Consulting physicians and Dr. Dodson were all notified. Just prior to the Code Blue, I began talking to his , Jody about whether she would want him to be a full code or a no code, but she wanted to speak to her daughter, Shamika, as well as her other daughter first in order to make that decision. On 03/06, labs included WBCs 20.6, hemoglobin 13.4, hematocrit 41, platelets 236, BUN 15, creatinine 0.66. Billing code 34248. Time spent over 80 minutes. Dictated by Terrence Jacobson NP MD CHANDLER CastañedaP/WANYD /[id number]
== END 2020-03-06 23:15 | disposition expired | DRG 871 ==
LOC: ER 11:56 → ERHOLD 14:01 → MED/SURG3 21:20
PROVIDERS: ADMIT Internal Medicine; ATTEND Internal Medicine
PROC: 009U3ZX Drainage of Spinal Canal, Percutaneous Approach, Diagnostic (ICD-10-PCS; principal; 2020-02-29)
PROC: B01B1ZZ Fluoroscopy of Spinal Cord using Low Osmolar Contrast (ICD-10-PCS; 2020-02-29)
PROC: 02HV33Z Insertion of Infusion Device into Superior Vena Cava, Percutaneous Approach (ICD-10-PCS; 2020-03-06)
PROC: B548ZZA Ultrasonography of Superior Vena Cava, Guidance (ICD-10-PCS; 2020-03-06)
PROC: 5A12012 Performance of Cardiac Output, Single, Manual (ICD-10-PCS; 2020-03-06)
DX: A41.52 Sepsis due to Pseudomonas (principal); G93.41 Metabolic encephalopathy; G92 Toxic encephalopathy; J69.0 Pneumonitis due to inhalation of food and vomit; I50.23 Acute on chronic systolic (congestive) heart failure; N39.0 Urinary tract infection, site not specified; G91.2 (Idiopathic) normal pressure hydrocephalus; M62.82 Rhabdomyolysis; I48.92 Unspecified atrial flutter; F02.81 Dementia in other diseases classified elsewhere, unspecified severity, with behavioral disturbance; R27.0 Ataxia, unspecified; Z91.81 History of falling; E78.5 Hyperlipidemia, unspecified; Z95.5 Presence of coronary angioplasty implant and graft; Z82.3 Family history of stroke; Z82.49 Family history of ischemic heart disease and other diseases of the circulatory system; F17.210 Nicotine dependence, cigarettes, uncomplicated; R65.20 Severe sepsis without septic shock; N40.1 Benign prostatic hyperplasia with lower urinary tract symptoms; R33.8 Other retention of urine; N20.0 Calculus of kidney; K57.90 Diverticulosis of intestine, part unspecified, without perforation or abscess without bleeding; J44.9 Chronic obstructive pulmonary disease, unspecified; I25.10 Atherosclerotic heart disease of native coronary artery without angina pectoris; F03.90 Unspecified dementia, unspecified severity, without behavioral disturbance, psychotic disturbance, mood disturbance, and anxiety; R79.89 Other specified abnormal findings of blood chemistry; N31.9 Neuromuscular dysfunction of bladder, unspecified; N39.46 Mixed incontinence; E66.9 Obesity, unspecified; R31.0 Gross hematuria; D35.02 Benign neoplasm of left adrenal gland; D35.01 Benign neoplasm of right adrenal gland; D64.9 Anemia, unspecified; G93.89 Other specified disorders of brain; M48.02 Spinal stenosis, cervical region; M50.31 Other cervical disc degeneration, high cervical region; R13.13 Dysphagia, pharyngeal phase; G31.83 Neurocognitive disorder with Lewy bodies; B96.5 Pseudomonas (aeruginosa) (mallei) (pseudomallei) as the cause of diseases classified elsewhere; I11.0 Hypertensive heart disease with heart failure; I44.39 Other atrioventricular block
CPT/HCPCS: 36415; 36569; 62328; 70450; 70553; 71045; 71250; 72141; 72148; 72170; 74018; 74176; 74230; 74470; 80048; 80053; 80061; 81001; 82140; 82550; 82553; 82607; 82805; 82945; 82948; 83036; 83605; 83735; 83880; 84100; 84157; 84443; 84484; 85025; 85610; 86592; 87040; 87070; 87071; 87086; 87102; 87186; 87205; 87206; 87400; 88184; 89051; 92950; 93005; 93306; 95812; 96361; 97139; 99251; 99284; J0171; J0360; J0456; J0696; J1630; J1940; J2001; J2060; J2270; J3010; J3486; J7040; J7050; U0002